=== PATIENT | female | born 1965 | race Caucasian/White ===

== ENCOUNTER → 2018-12-10 | Outpatient (CLI) | payer BC ==
--- NOTE | 2018-12-10 12:21 | XR ---
EXAM TYPE: LUMBAR SPINE X RAY SERIES COMPARISON: NONE HISTORY: Pain TECHNIQUE: 4 views are submitted. FINDINGS: Alignment is anatomic. The pedicles are intact. The transverse processes are intact. There is a lev o scoliotic curvature. There is a grade 1 anterolisthesis L4 on L5. There is facet arthropathy L4-5 a nd L5-S1. Multilevel mild to moderate degenerative disc disease with most marked findings at L4-5 and L5-S1 IMPRESSION: 1. Multilevel degenerative disc disease with grade 1 anterolisthesis L4 on L5. Recommend follow-up MR I.
== END ==
LOC: RADXRYALE 12:05
PROVIDERS: ATTEND Internal Medicine
DX: M43.16 Spondylolisthesis, lumbar region (principal); M51.36 Other intervertebral disc degeneration, lumbar region
CPT/HCPCS: 72110

== ENCOUNTER → 2019-02-06 | Outpatient (CLI) | payer BC ==
--- NOTE | 2019-02-06 12:21 | MM ---
Reason for exam: clinical finding. Baseline mammogram. History: Patient history of other cancer. Physical Findings: Nurse Summary: 0.5cm nodule in the left breast at 10-11 o'clock (nurse melchor). MG 3D Diag Mammo W/Cad QUIN Bilateral CC and MLO view(s) were taken. LM view(s) were taken of the left breast. The breast tissue is heterogeneously dense. This may lower the sensitivity of mammography. There are round, oval, circumscribed bilateral masses greater on the left than right. There is one seen on the right at middle depth in the upper outer quadrant and many on the left. These results were verbally communicated with the patient and result sheet given to the patient on 02/06/19. ASSESSMENT: Incomplete: need additional imaging evaluation, BI-RAD 0 RECOMMENDATION: Ultrasound of both breasts. (right upper outer quadrant, left whole breast)
--- NOTE | 2019-02-06 12:25 | USB ---
Reason for exam: additional evaluation requested from abnormal screening. History: Patient history of other cancer. US Breast Limited BILAT Right limited breast ultrasound including focal area of concern, retroareolar and axilla demonstrates a 0.7 x 0.5 x 0.3cm cystic cluster at 11 o'clock. Left complete breast ultrasound includes all four quadrants, the retroareolar region and axilla. Finding demonstrates a 1.0 x 0.5 x 0.5cm hypoechoic lesion at 8 o'clock likely deep cyst, a 1.4 x 1.7 x 1.3cm solid, hypoechoic lesion at 9 o'clock for which a biopsy is recommended, a 0.6 x 0.9 x 0.9cm solid, hypoechoic lesion at 9 o'clock for which a biopsy is recommended and a 0.5 x 0.8 x 0.5cm solid, hypoechoic lesion at 10 o'clock recommendation based on above biopsies. Posterior left nipple cystic area noted. These results were verbally communicated with the patient and result sheet given to the patient on 02/06/19. ASSESSMENT: Suspicious, BI-RAD 4 RECOMMENDATION: Ultrasound core biopsy of the left breast. (x 2) Called with mammographic findings and has scheduled an appointment for the patient for 02/17/19 at 5:[address] Payne. PRELIMINARY REPORT CALLED AND FAXED TO DR. PAYNE ON 02/06/19.
== END | disposition home or self-care (01) ==
LOC: RADMAMWWP 09:27
PROVIDERS: ATTEND Internal Medicine
DX: N64.59 Other signs and symptoms in breast (principal)
CPT/HCPCS: 77062; 77066

== ENCOUNTER → 2019-02-27 | Outpatient (CLI) | payer BC ==
[2019-02-27 09:38] VITALS: BP 143/78; PULSE 78; RESP 16; TEMP 98.1; BMI 24.7
--- NOTE | 2019-02-27 10:28 | P.GSHP ---
History of Present Illness H&P Date: 02/27/19 Chief Complaint: abnormal mammogram and ultrasound Laura is a 53-year-old white female who recently noticed some nodularity in her left breast. She subsequently underwent a mammogram and ultrasound. On the mammogram the breast tissue was noted to be heterogeneously dense. Therefore round oval circumscribed bilateral masses greater on the left than on the right. There was one seen on the right at middle depth. Bilateral ultrasound was performed. On the ultrasound in the right breast there was noted to be a cystic cluster. In the left breast there is a 1.4 x 1.7 cm solid lesion at 9:00 for which biopsy was recommended, a 0.6 x 0.9 cm solid lesion at 9:00 for which a biopsy was recommended and a 0.5 x 0.8 cm solid lesion at 10:00 biopsy recommended based on above biopsies. The patient with no history of trauma or infection in her breasts. The patient drinks coffee, and ice tea all day. She does not drink pop. She smokes 1/PPD, and is not exposed to second hand smoke. She eats chocolate occasionally. Family history: 1.grandfather paternal: lung 2. Patient with a history of basal cell carcinoma in her nose Clinical history: Menarche:12 , 1 stillborn, age at first live : 22, breast fed: no menopasue: last period in November BCP: 2 years hormones: none Surgical history: 1. 2. Cervical laser ablation 3. Basal cell carcinoma on her nose Medical History: 1. HTN 2. back pain Social History: smoke: 1/PPD, 25 years alcohol: used to drink daily, none now drugs: none - Constitutional Constitutional: Denies chills, Denies fever - EENT Eyes: denies blurred vision, denies pain Ears: bilateral: decreased hearing, deny: tinnitus Ears, nose, mouth and throat: Denies headache, Denies sore throat - Breasts Breasts: bilateral: as per HPI - Cardiovascular Cardiovascular: Reports high blood pressure, Denies chest pain, Denies shortness of breath - Respiratory Comment: smoker - Gastrointestinal Gastrointestinal: Denies abdominal pain, Denies diarrhea, Denies nausea, Denies vomiting - Genitourinary (Female) Genitourinary: Denies dysuria, Denies hematuria - Menstruation Comment: marek-menopausal - Musculoskeletal Comment: back pain Musculoskeletal: Denies myalgias - Integumentary Comment: basal cell cancer on nose - Neurological Neurological: Denies numbness, Denies weakness - Psychiatric Psychiatric: Reports anxiety - Endocrine Endocrine: Denies fatigue, Denies weight change - Hematologic/Lymphatic Comment: motrin as needed for back pain - Allergic/Immunologic Allergic/Immunologic: Reports as per HPI Past Medical History History of Any Multi-Drug Resistant Organisms: None Reported Smoking Status: Current every day smoker Medications and Allergies Home Medications Medication Instructions Recorded Confirmed Type Ibuprofen [Motrin] 800 mg PO TID PRN 02/25/19 02/27/19 History Losartan Potassium [Cozaar] 50 mg PO DAILY 02/25/19 02/27/19 History Venlafaxine HCl [Effexor XR] 112.5 mg PO DAILY 02/25/19 02/27/19 History Allergies Allergy/AdvReac Type Severity Reaction Status Date / Time Sulfa (Sulfonamide Allergy Severe Rash/Hives Verified 02/27/19 09:38 Antibiotics) Surgical - Exam Vital Signs Temp Pulse Resp BP Pulse Ox 98.1 F 78 16 143/78 98 02/27/19 09:32 02/27/19 09:32 02/27/19 09:32 02/27/19 09:32 02/27/19 09:32 BMI 24.7 - General well developed, well nourished, no distress - Eyes normal ocular movement - ENT no hearing loss, no congestion - Neck no masses, trachea midline - Respiratory normal respiratory effort, clear to auscultation - Cardiovascular Rhythm: regular Heart Sounds: normal: S1, S2 - Abdomen Abdomen: soft, non tender, no guarding, no rigid, no rebound - Integumentary normal turgor - Neurologic no disoriented, no combative - Musculoskeletal normal gait, normal posture - Psychiatric oriented to time, oriented to person, oriented to place, speech is normal, memory intact breast exam: right breast: Multi-positional exam no dominant masses or nodules of concern, dense breast, fibrocystic changes, Right axilla: No adenopathy of concern Left breast: Multiple positional exam increased nodularity at 9:00, approximately 1.5 cm in size. Dense breast, fibrocystic changes Left axilla: No adenopathy of concern Results Extensive mammogram and ultrasound results reviewed Assessment and Plan Assessment: Impression: 1. Mammographic abnormality 2. Ultrasound abnormality 3. Personal history of basal cell carcinoma 4. Hypertension 5. Back pain 6. anxiety 7. Nicotine dependence 8. Heavy caffeine intake Discussed the fact that caffeinated beverages and nicotine may increase fibrocystic breast changes. The patient is going to attempt to decrease her caffeine intake and cigarette smoking. Plan: 1. Ultrasound-guided core biopsy of 2 areas of concern in the left breast 2. Medical management of medical conditions 3. Patient is going to decrease caffeine and nicotine intake 4. Medical management of medical problems 5. Follow-up care after ultrasound core biopsies areas in the left breast Cc:
== END ==
LOC: WWCWWP 08:53
PROVIDERS: ATTEND Surgery
DX: Z53.9 Procedure and treatment not carried out, unspecified reason (principal)

== ENCOUNTER → 2019-03-11 | Day surgery (SDC) | payer BC ==
[2019-03-11 11:38] VITALS: RESP 16; TEMP 98.2; BMI 24.7
[2019-03-11 13:16] VITALS: BP 145/84; PULSE 70
--- NOTE | 2019-03-11 13:37 | USB ---
EXAMINATION TYPE: US biopsy breast add'l VAD LT, US biopsy breast VAD LT DATE OF EXAM: 03/11/2019 CLINICAL HISTORY: R92.8 ABNORMAL MAMMOGRAM. TECHNIQUE: Ultrasound guided core biopsy of left breast. COMPARISON: 02/06/2019 FINDINGS: The procedure of ultrasound guided core biopsy was explained to the patient. Benefits, alt ernatives, and risks were discussed. An informed consent was then obtained. A procedural timeout wa s performed. Preprocedural imaging demonstrated at least 2 additional masses, one at the 9:00 position as partiall y visualized measuring at least 1.6 cm on image 21/64 and an additional hypoechoic mass was seen on t he prior ultrasound measuring 0.5 x 0.8 x 0.5 cm at the 10:00 position. Recommendation for these mass es will be based on the above biopsies. Site a (zone C): The patient was placed in supine positioning for imaging and for the procedure. The overlying skin was prepped and draped in usual sterile fashion. 10 cc of 1% lidocaine was used as an esthetic into the skin and subcutaneous tissue up to the approximately 1.2 cm mass at the 9:00 positi on in zone C of the left breast. Under ultrasound guidance, a 12-gauge vacuum assisted biopsy gun device was used to obtain 7 core joel ples. Following this, a ribbon-shaped clip was left in mass. Site b (zone A): The patient was placed in supine positioning for imaging and for the procedure. The overlying skin was prepped and draped in usual sterile fashion. 10 cc of 1% lidocaine was used as a nesthetic into the skin and subcutaneous tissue up to the approximately 1.3 cm mass at the 9:00 posit ion in zone a within the left breast. Under ultrasound guidance, a 12-gauge vacuum assisted biopsy gun device was used to obtain 4 core joel ples. Following this, a coil-shaped biopsy marker was left in mass. The patient tolerated the procedure well without any immediate complication. The patient was kept in the radiology department for short stay after the procedure and then discharged home in stable condi tion. IMPRESSION: Successful, uncomplicated 2 site ultrasound guided core biopsy the left breast with a mor e anterior site suspected to represent a papilloma/intraductal filling defect, full pathology results to follow. There are 2 additional suspicious masses at the 9:00 and 10:00 position for which recomme ndation will be made after biopsy results.
--- NOTE | 2019-03-11 13:47 | MM ---
Reason for exam: additional evaluation requested from abnormal screening. Last mammogram was performed 1 month ago. History: Patient history of other cancer. MG Diagnostic Mammo LT Wo CAD CC and ML view(s) were taken of the left breast. Prior study comparison: February 06, 2019, bilateral MG 3d diag mammo w/cad QUIN. ASSESSMENT: Post procedure mammogram for marker placement RECOMMENDATION: Ultrasound of the left breast in 6 months. PENDING PATHOLOGY RESULTS.
== END ==
LOC: RADUSWWP 11:27
PROVIDERS: ATTEND Internal Medicine
DX: D24.2 Benign neoplasm of left breast (principal); Z88.2 Allergy status to sulfonamides; N60.32 Fibrosclerosis of left breast; N60.02 Solitary cyst of left breast
CPT/HCPCS: 88305; 77065; 19083; 19084; A4648; J2001

== ENCOUNTER → 2019-03-21 | Outpatient (CLI) | payer BC ==
[2019-03-21 09:53] VITALS: BP 124/78; PULSE 88; RESP 16; TEMP 98.2; BMI 24.3
--- NOTE | 2019-03-21 10:20 | P.PN ---
Subjective Progress Note Date: 03/21/19 Laura is a 53-year-old white female who recently noticed some nodularity in her left breast. She subsequently underwent a mammogram and ultrasound. On the mammogram the breast tissue was noted to be heterogeneously dense. Therefore round oval circumscribed bilateral masses greater on the left than on the right. There was one seen on the right at middle depth. Bilateral ultrasound was performed. On the ultrasound in the right breast there was noted to be a cystic cluster. In the left breast there is a 1.4 x 1.7 cm solid lesion at 9:00 for which biopsy was recommended, a 0.6 x 0.9 cm solid lesion at 9:00 for which a biopsy was recommended and a 0.5 x 0.8 cm solid lesion at 10:00 biopsy rec ommended based on above biopsies. The patient with no history of trauma or infection in her breasts. The patient drinks coffee, and ice tea all day. She does not drink pop. She smokes 1/PPD, and is not exposed to second hand smoke. She eats chocolate occasionally. The patient underwent ultrasound-guided core biopsy of 2 lesions at 9:00 in the left breast and [id number]. This revealed intraductal papilloma. Secondary to the findings on ultrasound it was recommended. An additional lesion at 10:00 be sampled as well. The patient does have some complaints of ecchymosis at the site of the biopsy. She has persistent for less at the area of the site. This is not a hematoma but was there prior to the biopsy. Family history: 1.grandfather paternal: lung 2. Patient with a history of basal cell carcinoma in her nose Clinical history: Menarche:12 , 1 stillborn, age at first live : 22, breast fed: no menopasue: last period in November BCP: 2 years hormones: none Surgical history: 1. 2. Cervical laser ablation 3. Basal cell carcinoma on her nose Medical History: 1. HTN 2. back pain Social History: smoke: 1/PPD, 25 years alcohol: used to drink daily, none now drugs: none - Constitutional Constitutional: Denies chills, Denies fever - EENT Eyes: denies blurred vision, denies pain Ears: bilateral: decreased hearing, deny: tinnitus Ears, nose, mouth and throat: Denies headache, Denies sore throat - Breasts Breasts: bilateral: as per HPI - Cardiovascular Cardiovascular: Reports high blood pressure, Denies chest pain, Denies shortness of breath - Respiratory Comment: smoker - Gastrointestinal Gastrointestinal: Denies abdominal pain, Denies diarrhea, Denies nausea, Denies vomiting - Genitourinary (Female) Genitourinary: Denies dysuria, Denies hematuria - Menstruation Comment: marek-menopausal - Musculoskeletal Comment: back pain Musculoskeletal: Denies myalgias - Integumentary Comment: basal cell cancer on nose - Neurological Neurological: Denies numbness, Denies weakness - Psychiatric Psychiatric: Reports anxiety - Endocrine Endocrine: Denies fatigue, Denies weight change - Hematologic/Lymphatic Comment: motrin as needed for back pain - Allergic/Immunologic Allergic/Immunologic: Reports as per HPI Objective - Vital Signs Vital signs: Vital Signs Temp 98.2 F 03/21/19 09:50 Pulse 88 03/21/19 09:50 Resp 16 03/21/19 09:50 BP 124/78 03/21/19 09:50 Pulse Ox 98 03/21/19 09:50 Intake & Output 03/20/19 03/21/19 03/21/19 18:59 06:59 18:59 Weight 60.328 kg - Exam BMI 24.3 - Constitutional General appearance: Present: average body habitus - EENT Eyes: Present: EOMI ENT: Present: hearing grossly normal - Neck Neck: Present: normal ROM - Respiratory Respiratory: bilateral: CTA - Cardiovascular Rhythm: regular Heart sounds: normal: S1, S2 - Integumentary Integumentary Comment(s): echymosis left breast at biopsy site Persistent fullness upper inner quadrant at biopsy site not associated with hematoma Integumentary: Present: normal turgor - Musculoskeletal Musculoskeletal: Present: gait normal - Psychiatric Psychiatric: Present: A&O x's 3, appropriate affect, intact judgment & insight Assessment and Plan Assessment: Impression: 1. Ultrasound-guided core biopsy of 2 sites in the left breast both consistent with intraductal papilloma 2. Third site and ultrasound at 10:00 for which ultrasound-guided core biopsy is recommended 3. Personal history of basal cell carcinoma 4. Hypertension 5. Back pain 6. Anxiety 7. Nicotine dependence 8. Heavy caffeine intake Plan: 1. Ultrasound-guided core biopsy of 10:00 area in the left breast 2. Medical management of medical conditions 3. Localization and excisional biopsy of 2 areas at 9:00 and depending on results of 10:00 ultrasound biopsy this may be included in the excision as well Risk and benefits of procedure discussed with patient and her they understand and this is being scheduled for the near future Cc: Dr. Payne
== END ==
LOC: WWCWWP 09:43
PROVIDERS: ATTEND Surgery
DX: Z53.9 Procedure and treatment not carried out, unspecified reason (principal)

== ENCOUNTER → 2019-04-04 | Day surgery (SDC) | payer BC ==
[2019-04-04 10:42] VITALS: RESP 16; BMI 24.3
[2019-04-04 12:40] VITALS: BP 127/82; PULSE 68; TEMP 98.1
--- NOTE | 2019-04-04 13:33 | USB ---
EXAMINATION TYPE: US biopsy breast add'l VAD LT, US biopsy breast VAD LT, MG diagnostic mammo LT wo CAD DATE OF EXAM: 04/04/2019 CLINICAL HISTORY: R92.8 ABNORMAL MAMMOGRAM. TECHNIQUE: Ultrasound guided core biopsy of left breast. COMPARISON: Ultrasound of the left breast dated 03/11/2019 and ultrasound-guided left breast biopsy dated 04/04/2019. FINDINGS: The procedure of ultrasound guided core biopsy was explained to the patient. Benefits, alternatives, and risks were discussed. An informed consent was then obtained. Preprocedural timeout was performed. Site A: The patient was placed in supine positioning for imaging and for the procedure. The overlying skin was prepped and draped in usual sterile fashion. 10 cc of 1% lidocaine was used as anesthetic into the skin and subcutaneous tissue up to the 0.5 x 0.8 x 0.5 cm mass at the 9:00 position in the left breast, previously denoted 10:00. Under ultrasound guidance, a 12-gauge vacuum assisted biopsy gun device was used to obtain 4 core samples. Following this, a wing shaped biopsy marker was left in mass. Site B: The patient was placed in supine positioning for imaging and for the procedure. The overlying skin was prepped and draped in usual sterile fashion. 10 cc of 1% lidocaine was used as anesthetic into the skin and subcutaneous tissue up to the lobulated mass at the 10:00 position measuring 1.0 x 0.5 cm within the left breast. Under ultrasound guidance, a 12-gauge vacuum assisted biopsy gun device was used to obtain 3 core samples. Following this, a [employer]rom[employer] biopsy marker was left in mass. A biopsy marker was attempted to be placed within an additional 4 mm mass at the 10:00 position adjacent to the biopsy site B, however after instillation of the biopsy marker device without deforming the biopsy marker this cyst collapsed. No biopsy marker was therefore placed. The patient tolerated the procedure well without any immediate complication. The patient was kept in the radiology department for short stay after the procedure and then discharged home in stable condition. Procedure mammogram demonstrates appropriate biopsy marker placement. IMPRESSION: Successful, uncomplicated ultrasound guided core biopsy of 2 sites within the left breast at the 9:00 and 10:00 positions, full pathology results to follow. Of note CC post biopsy image is labeled with the prior and pending pathology, which can be referenced for excision. Pathology Results: Malignant A. LEFT BREAST, 9:00, CORE BIOPSY: Malignant neoplasm with squamous differentiation, favor metaplastic mammary carcinoma. See surgical pathology cancer case summary and comment. B. LEFT BREAST, 10:00, ULTRASOUND GUIDED CORE BIOPSY: Intraductal papilloma. Recommendation Surgical consult of the left breast. Excision of multiple papillomas and squamous cell cancer. [facility]
== END ==
LOC: RADUSWWP 10:23
PROVIDERS: ATTEND Surgery
DX: C50.812 Malignant neoplasm of overlapping sites of left female breast (principal); D24.2 Benign neoplasm of left breast; Z88.2 Allergy status to sulfonamides
CPT/HCPCS: 88305; 88342; 88341; 77065; 19083; 19084; A4648; J2001

== ENCOUNTER → 2019-04-10 | Outpatient (CLI) | payer BC ==
[2019-04-10 11:11] VITALS: BP 151/87; PULSE 92; RESP 16; TEMP 98.2; BMI 24.3
--- NOTE | 2019-04-10 12:08 | P.PN ---
Subjective Progress Note Date: 04/10/19 Laura is a 53-year-old white female who recently noticed some nodularity in her left breast. She subsequently underwent a mammogram and ultrasound. On the mammogram the breast tissue was noted to be heterogeneously dense. There were round oval circumscribed bilateral masses greater on the left than on the right. There was one seen on the right at middle depth. Bilateral ultrasound was performed. On the ultrasound in the right breast there was noted to be a cystic cluster. In the left breast there is a 1.4 x 1.7 cm solid lesion at 9:00 for which biopsy was recommended, a 0.6 x 0.9 cm solid lesion at 9:00 for which a biopsy was recommended and a 0.5 x 0.8 cm solid lesion at 10:00 biopsy rec ommended based on above biopsies. The patient's initial biopsies revealed intraductal papilloma and she went for further biopsies and one at the left breast at 9:00 revealed a metaplastic mammary carcinoma. The patient has no complaints related to her recent biopsies. The patient with no history of trauma or infection in her breasts. The patient drinks coffee, and ice tea all day. She does not drink pop. She smokes 1/PPD, and is not exposed to second hand smoke. She eats chocolate occasionally. Family history: 1.grandfather paternal: lung 2. Patient with a history of basal cell carcinoma in her nose Clinical history: Menarche:12 , 1 stillborn, age at first live : 22, breast fed: no menopasue: last period in November BCP: 2 years hormones: none Surgical history: 1. 2. Cervical laser ablation 3. Basal cell carcinoma on her nose Medical History: 1. HTN 2. back pain Social History: smoke: 1/PPD, 25 years alcohol: used to drink daily, none now drugs: none - Constitutional Constitutional: Denies chills, Denies fever - EENT Eyes: denies blurred vision, denies pain Ears: bilateral: decreased hearing, deny: tinnitus Ears, nose, mouth and throat: Denies headache, Denies sore throat - Breasts Breasts: bilateral: as per HPI - Cardiovascular Cardiovascular: Reports high blood pressure, Denies chest pain, Denies shortness of breath - Respiratory Comment: smoker - Gastrointestinal Gastrointestinal: Denies abdominal pain, Denies diarrhea, Denies nausea, Denies vomiting - Genitourinary (Female) Genitourinary: Denies dysuria, Denies hematuria - Menstruation Comment: marek-menopausal - Musculoskeletal Comment: back pain Musculoskeletal: Denies myalgias - Integumentary Comment: basal cell cancer on nose - Neurological Neurological: Denies numbness, Denies weakness - Psychiatric Psychiatric: Reports anxiety - Endocrine Endocrine: Denies fatigue, Denies weight change - Hematologic/Lymphatic Comment: motrin as needed for back pain - Allergic/Immunologic Allergic/Immunologic: Reports as per HPI Past Medical History History of Any Multi-Drug Resistant Organisms: None Reported Smoking Status: Current every day smoker Objective - Vital Signs Vital signs: Vital Signs Temp 98.2 F 04/10/19 11:09 Pulse 92 04/10/19 11:09 Resp 16 04/10/19 11:09 BP 151/87 04/10/19 11:09 Pulse Ox 97 04/10/19 11:09 Intake & Output 04/09/19 04/10/19 04/10/19 18:59 06:59 18:59 Weight 60.328 kg - Constitutional General appearance: Present: average body habitus - EENT Eyes: Present: EOMI ENT: Present: hearing grossly normal - Neck Neck: Present: normal ROM - Respiratory Respiratory: bilateral: CTA - Cardiovascular Rhythm: regular Heart sounds: normal: S1, S2 - Integumentary Integumentary: Present: normal turgor - Musculoskeletal Musculoskeletal: Present: gait normal - Psychiatric Psychiatric: Present: A&O x's 3, appropriate affect, intact judgment & insight - Additional findings Additional findings: Left breast: Biopsy site mild ecchymosis with small hematoma No evidence of any infection Assessment and Plan Assessment: Impression: 1. Metaplastic mammary carcinoma left breast 2. Multiple intraductal papillomas multifocal and the breast 3. Family history of cancer 4. Personal history of basal cell carcinoma 5. Hypertension 6. Nicotine dependence Metaplastic carcinoma diagnosis was discussed with the patient and her . Options of lumpectomy versus mastectomy with sentinel node biopsy and possible axillary node dissection were discussed with the patient. The patient has multifocal disease include not only the site of metaplastic carcinoma but also intraductal papillomas. After discussion with the patient and her she has opted for a mastectomy with immediate reconstruction. She will also have a sentinel node biopsy possible axillary node dissection. Plan: 1. Mastectomy with sentinel node biopsy, possible axillary node dissection immediate reconstruction 2. Present case at tumor board 3. Appointment with plastic surgery 4. Bilateral breast MRI Cc: Dr. Payne
== END | disposition home or self-care (01) ==
LOC: WWCWWP 11:01
PROVIDERS: ATTEND Surgery
DX: Z53.9 Procedure and treatment not carried out, unspecified reason (principal)

== ENCOUNTER → 2019-04-10 | Outpatient (CLI) | payer BC ==
--- NOTE | 2019-04-10 13:31 | XR ---
EXAMINATION TYPE: XR chest 2V DATE OF EXAM: 04/10/2019 COMPARISON: NONE HISTORY: Newly diagnosed breast cancer. Presurgical study. TECHNIQUE: Frontal and lateral views of the chest are obtained. FINDINGS: There is no focal air space opacity, pleural effusion, or pneumothorax seen. The cardiac silhouette size is within normal limits. Underlying dextroconvex scoliosis centered in the lower thor acic spine is present.. IMPRESSION: No acute cardiopulmonary process.
== END | disposition home or self-care (01) ==
LOC: RADXRMAIN 12:46
PROVIDERS: ATTEND Surgery
DX: R07.9 Chest pain, unspecified (principal)
CPT/HCPCS: 71046

== ENCOUNTER 2019-05-06 08:52 | Observation (INO) | payer BC ==
[2019-05-02 09:04] VITALS: BMI 24.3
[~2019-05-06 08:52] MED LIST: DEXAMETHASONE SOD PHOSPHATE 10 MG/ML 1 ML VIAL IV ONE; HEPARIN SODIUM,PORCINE 5,000 UNIT/ML 1 ML VIAL SQ ONE; ONDANSETRON 4 MG/2 ML VIAL IVP ONE; Pre Op ABX Message 1 EACH MISC MISCELLANE ONE
[2019-05-06] MEDS: LACTATED RINGERS 1,000 ML IV SCH ×3 (09:36→19:49)
[2019-05-06] MEDS ORDERED: LIDOCAINE 1% 20 ML VIAL (10MG/ML) FOR IV START INTRADERMA ONE (09:36)
[2019-05-06] MEDS ORDERED: ALPRAZolam 0.5 MG TAB PO ONE (09:39)
[2019-05-06] MEDS ORDERED: ONDANSETRON 4 MG/2 ML VIAL IVP ONE (10:13)
[2019-05-06] MEDS ORDERED: DEXAMETHASONE SOD PHOSPHATE 4 MG/ML 1 ML VIAL IV ONE (10:14)
--- NOTE | 2019-05-06 10:38 | NM ---
EXAMINATION TYPE: NM sentinel node injection DATE OF EXAM: 05/06/2019 COMPARISON: Breast exams dating back to 03/11/2019 HISTORY: Left breast cancer for which mastectomy will be performed. Thurston node biopsy in the left was requested. TECHNIQUE AND FINDINGS: The procedure of sentinel lymph node injection was explained to the patient. The benefits, alternatives, and risks were discussed. An informed consent was then obtained. Prepr ocedural timeout was performed. Overlying skin is cleaned with sterile alcohol. Following this, 520 uCi Tc99m Tilmanocept was inject ed in the upper outer aspect of the left nipple intradermally. The patient tolerated the procedure well without any immediate complication. The patient was kept in the radiology department for short stay after the procedure and then taken to surgery for surgical p rocedure what is presumed intraoperative gamma probe will be used for sentinel lymph node detection. IMPRESSION: Left breast radiotracer injection for sentinel node localization as above.
[2019-05-06] MEDS ORDERED: HEPARIN SODIUM,PORCINE 5,000 UNIT/ML 1 ML VIAL SQ ONE (11:10)
--- NOTE | 2019-05-06 11:12 | P.NAPBC ---
NAPBC Queries - NAPBC Queries Was patient's case review presented at [facility] tumor board? If no, comment.: Yes Was patient's pathology reviewed at [facility]? If no, comment.: Yes Was breast conservation surgery offered? If no, comment.: No (Not recommended secondary to multifocal disease) Was sentinel node biopsy offered? If no, comment.: Yes Was diagnosis confirmed by percutaneous core biopsy? If no, comment.: Yes Is patient mastectomy patient?: Yes Was a preop referral to reconstructive surgeon offered?: Yes Clinical Stage: STAGE 1A
[2019-05-06] MEDS ORDERED: fentaNYL (PF) 50 MCG/ML 2 ML AMP ONE (11:40)
[2019-05-06] MEDS ORDERED: MIDAZOLAM 2 MG/2 ML VIAL ONE (11:40)
[2019-05-06] MEDS ORDERED: PHENYLEPHRINE-0.9% NACL SYG 1 MG/10 ML SYRINGE ONE (11:40)
[2019-05-06] MEDS ORDERED: SUCCINYLCHOLINE CHLORIDE 100 MG/5 ML SYR IV ONE (11:40)
[2019-05-06] MEDS ORDERED: ePHEDrine SULFATE/0.9% NACL/PF 50 MG/5 ML SYRINGE IV ONE (11:40)
[2019-05-06] MEDS ORDERED: LIDOCAINE 1% INJ 10MG/ML (20 ML MDV) ONE (11:40)
[2019-05-06] MEDS ORDERED: PROPOFOL 10 MG/ML 20 ML VIAL IV ONE (11:40)
[2019-05-06] MEDS ORDERED: HYDROmorphone (PF) 1 MG/ML ONE (11:40)
[2019-05-06] MEDS ORDERED: SODIUM CHLORIDE 0.9% 100 ML with ceFAZolin 2,000 MG IV ONE ×2 (11:55)
[2019-05-06] MEDS ORDERED: LACTATED RINGERS 1,000 ML IV ONE ×2 (13:08)
[2019-05-06] MEDS ORDERED: ONDANSETRON 4 MG/2 ML VIAL IVP PRN (14:24)
[2019-05-06] MEDS ORDERED: NALOXONE 0.4 MG/ML 1 ML VIAL IV PRN (14:24)
--- NOTE | 2019-05-06 14:24 | P.OP ---
Date of Procedure: 05/06/19 Preoperative Diagnosis: Left breast cancer with multifocal intraductal papillomas Postoperative Diagnosis: Same Procedure(s) Performed: Left breast sentinel node biopsy, left total skin sparing mastectomy Anesthesia: SCOUT Surgeon: Trini Benedict Estimated Blood Loss (ml): 100 IV fluids (ml): 1,300 Pathology: other (Rew node, left breast) Condition: stable Disposition: floor Indications for Procedure: Left breast multifocal intraductal papilloma, invasive metaplastic cancer Operative Findings: Dense breast tissue Description of Procedure: Following injection of lymphatic kind in the periareolar region the patient was taken to the operating room. The patient was also seen prior to surgery by plastic surgery and the appropriate skin markings were created. The patient was taken to the operating room and following induction of anesthesia both breasts and the left axilla were prepped and draped in a sterile fashion. Using the neoprobe the area of greatest radioactivity was identified. An incision was made in the axilla and carried through the skin and subcutaneous tissue into the axillary contents. The radioactive lymph node was identified. This was grasped using an Allis clamp and using the Harmonic scalpel the area was excised. A 10 second ex vivo count was 54,000. The 10 second background axillary count was approximately 100. A second radioactive lymph node was removed with the specimen and its 10 second count was 33,300. This lymph node was not clinically suspicious and was not sent for frozen section evaluation. The lymph node was sent for frozen section evaluation and was negative for cancer on frozen section. A small amount of additional axillary tissue then removed with removal of the node and this was sent for permanent evaluation. Following this the area of the breast was approached. A periareolar incision was made. This was carried through the skin and subcutaneous tissue down to the plane between the breast tissue and the skin. The breast tissue was extremely dense and the breast tissue extended very close to the skin. Careful dissection using the electrocautery device was performed to remove the breast tissue. The skin envelope was maintained using palpation to assure that the fibrotic breast tissue was removed. Dissection was carried down to the pectoralis major muscle. At the medial portion of the pectoralis major muscle perforating vessel was identified which was suture ligated. The tissue was then removed from medial to lateral off the pectoralis muscle using the electrocautery device. The wound was well irrigated. No evidence of bleeding was identified. At this time the breast was marked with a superior suture which was short and a long suture which was lateral. The specimen was sent to pathology. Dr. Latham from plastic surgery than came in to place the tissue cardiology nurse.
[2019-05-06] MEDS: HYDROmorphone 0.5 MG/0.5 ML SYRINGE IVP PRN ×4 (15:03→22:52)
[2019-05-06] MEDS ORDERED: KETOROLAC 30 MG/ML 1 ML VIAL IVP ONE (15:04)
[2019-05-06] MEDS: HEPARIN SODIUM,PORCINE 5,000 UNIT/ML 1 ML VIAL SQ SCH (17:59)
[2019-05-06] MEDS: D5-0.45% NACL WITH KCL 20MEQ/L 1,000 ML IV SCH (19:09)
[2019-05-06] MEDS: FAMOTIDINE 20 MG TAB PO SCH (21:17)
[2019-05-07] MEDS: D5-0.45% NACL WITH KCL 20MEQ/L 1,000 ML IV SCH ×2 (00:14→20:03)
[2019-05-07] MEDS: HEPARIN SODIUM,PORCINE 5,000 UNIT/ML 1 ML VIAL SQ SCH ×3 (01:06→17:04)
[2019-05-07] MEDS: HYDROmorphone 0.5 MG/0.5 ML SYRINGE IVP PRN (04:02)
[2019-05-07] MEDS: HYDROcodone/APAP 5-325MG 1 EACH TAB PO PRN ×5 (05:00→21:05)
--- NOTE | 2019-05-07 05:54 | OP ---
OPERATIVE REPORT DATE OF SURGERY: May 06, 2019. SURGEON: Pradeep Novak MD. PREOPERATIVE DIAGNOSES: 1. Acquired loss left breast. 2. Left breast cancer. POSTOPERATIVE DIAGNOSES: 1. Acquired loss left breast. 2. Left breast cancer. OPERATIVE PROCEDURES: 1. Immediate reconstruction left breast following mastectomy with insertion of tissue smoke control supervisor subsequent outpatient expansion. 2. Implantation of reconstructive graft for left breast reconstruction. OPERATIVE INDICATIONS: Patient is a 53-year-old female with invasive cancer of the left breast. She Is to undergo a left mastectomy. She was referred to my care for breast reconstruction, has elected upon a tissue smoke control supervisor style reconstruction. She understands the staged nature of this type of surgery as well as potential risks and complications related to surgery. Preoperatively to lower her risk of problems and complications, the patient has stopped smoking. She understands there is increased risk of wound healing problems, other complications related to tobacco use. She has requested I perform today's surgery. OPERATIVE PROCEDURE SUMMARY: The patient was seen in the presurgical area, markings made, procedure reviewed. All questions answered. She was transported to the operating room where she was placed in supine position. Following induction of general tracheal anesthesia, the patient was prepped and draped in the usual fashion. Dr. Benedict and her team then proceeded with the left sentinel lymph node biopsy and left simple mastectomy. The sentinel lymph node was negative for cancer. Once the mastectomy was completed, I entered the procedure. All sponge and needle counts of prior procedure were correct. The patient was under general tracheal anesthesia in supine position. The mastectomy wound was open with no active bleeding. The wound was irrigated. The reconstructive procedures were now initiated. The pectorals major muscle was identified where it joined the chest wall on the lateral aspect. Loose areolar connective tissue divided with cautery here allowing entry into the potential plane between the pectorals major minor muscles which were bluntly developed. Medial attachment fibers of the pectorals major muscle to the rib structures released with cautery and all inferior attachments. Hemostasis maintained with cautery. Additional muscle tissue was required for complete coverage of the reconstructive smoke control supervisor inferior medially rectus abdominis muscle and fascia, inferolaterally external abdominal oblique muscle and fascia and laterally serrated anterior muscle and fascia were all elevated through this technique. Once a sufficient size submuscular pocket was created, dissection stopped. Irrigation was performed. Hemostasis maintained with cautery. Excellent hemostasis was obtained. The cavity was measured. Gloves were changed. The tissue smoke control supervisor was then opened on the field. The tissue smoke control supervisor was from the [employer] High-Profile Model, reference number [id number], Serial #[id number]. The device volume was 475 mL. The device was only handled by the surgeon. All air was extracted 50 mL of 0.9 normal saline instilled. It was inserted into the reconstructive cavity. Orientation was assured under direct vision. Once optimally positioned, SurgiMend was then placed over the smoke control supervisor, but deep to the muscle tissue the span of gap for the muscle could not be closed without significant tension. This allowed optimization for the space for the reconstructive purpose as well and buttressing of the patient's muscle. The SurgiMend was inset to the muscle flap tissue using interrupted short running 3-0 Vicryl. Additional 100 mL of 0.9 normal saline instilled into the smoke control supervisor to optimize the tension and fill the space making the final volume 150 mL. Irrigation was performed. Hemostasis excellent. A 15 round drain was inserted in the surgical field and brought out a separate stab incision left anterior lateral chest wall and suture in placed with 2-0 Prolene. The drain was kept at full length. The circumareolar mastectomy incision was now closed in a pursestring fashion at the deep dermal layer followed by finer approximation of the more superficial dermis with inverted interrupted 4-0 Monocryl then completing fine approximation of the skin with shante. The surgical quezada were then cleansed with saline, dried and postoperative bandages placed using Kerlix squares and 3 mm Medipore tape. The drain was connected to close bulb suction and patent. The patient was then awakened from her anesthetic, extubated, and transferred to the recovery room in good condition stable vital signs. The estimated blood loss was 50 mL. There were no complications. MMODL / IJN: [id number] /
[2019-05-07] MEDS: VENLAFAXINE HCL ER 37.5 MG CAP PO SCH (08:10)
[2019-05-07] MEDS: FAMOTIDINE 20 MG TAB PO SCH ×2 (08:10→21:05)
[2019-05-07] MEDS: LOSARTAN 50 MG TAB PO SCH (08:11)
[2019-05-07 09:12] LABS: Basophils % (A) 0 %; Eosinophils # (A) 0.1 k/uL (0-0.7); Eosinophils % (A) 1 %; HCT 32.6 % (34.0-46.0); Lymphocytes # (A) 1.9 k/uL (1.0-4.8); Lymphocytes % (A) 20 %; MCH 31.2 pg (25.0-35.0); MCHC 33.6 g/dL (31.0-37.0); MCV 92.7 fL (80.0-100.0); Mean Platelet Volume 7.8; Monocytes # (A) 0.7 k/uL (0-1.0); Monocytes % (A) 8 %; Neutrophils # (A) 6.5 k/uL (1.3-7.7); Neutrophils % (A) 70 %; Platelet Count 230 k/uL (150-450); RBC 3.52 m/uL (3.80-5.40); RDW 13.5 % (11.5-15.5); WBC 9.4 k/uL (3.8-10.6)
--- NOTE | 2019-05-07 13:16 | P.CONS ---
History of Present Illness - History of Present Illness This is a pleasant 53 years old female with past medical history of hypertens ion, osteoarthritis, left breast cancer diagnosis in March 2019, degenerative disc disease on chronic back pain. She presents for elective reconstruction of her left breast following mastectomy for her acquired close of her left breast related to her left breast cancers by her surgeon. With implantation of a graft in her left breast. Today postop day #1. Vitas looks stable. Labs show a normal WBC of 9.4K, hemoglobin 11, platelets within normal limits. She is currently on Pepcid, and heparin for DVT prophylaxis, pain management as per surgeons primary team, also she is on Cozaar and Zofran as needed. Review of Systems CONSTITUTIONAL: No fever, no malaise, no fatigue. HEENT: No recent visual problems or hearing problems. Denied any sore throat. CARDIOVASCULAR: No orthopnea, PND, no palpitations, no syncope. PULMONARY: No shortness of breath, no cough, no hemoptysis. GASTROINTESTINAL: No diarrhea, no nausea, no vomiting, no abdominal pain. Normoactive bowel sounds. NEUROLOGICAL: No headaches, no weakness, no numbness. HEMATOLOGICAL: Denies any bleeding or petechiae. GENITOURINARY: Denies any burning micturition, frequency, or urgency. MUSCULOSKELETAL/RHEUMATOLOGICAL: Denies any joint pain, swelling, or any muscle pain. ENDOCRINE: Denies any polyuria or polydipsia. Past Medical History Past Medical History: Cancer, Hypertension, Osteoarthritis (OA) Additional Past Medical History / Comment(s): left breast CA-dx March 2019. lower left back Degenerative disc disease/pain. basal cell skin cancer on right nostril History of Any Multi-Drug Resistant Organisms: None Reported Past Surgical History: Section Additional Past Surgical History / Comment(s): x 1 (1994). cervical laser ablation in 2005 (cervical dysplasia). left breast excisional biopsyx2. Left mastectomy and sentinal node biopsy 05/06/2019 Past Anesthesia/Blood Transfusion Reactions: No Reported Reaction Additional Past Anesthesia/Blood Transfusion Reaction / Comm: No blood transfusion to date Smoking Status: Current every day smoker - Past Family History Father Additional Family Medical History / Comment(s): patients paternal grandfather from lung cancer at age 80. Mother Family Medical History: Hyperlipidemia, Hypertension Brother(s) Family Medical History: No Reported History Daughter(s) Family Medical History: No Reported History Son(s) Family Medical History: No Reported History Additional Family Medical History / Comment(s): DDD Medications and Allergies Home Medications Medication Instructions Recorded Confirmed Type Ibuprofen [Motrin] 800 mg PO TID PRN 02/25/19 05/07/19 History Losartan Potassium [Cozaar] 50 mg PO QAM 02/25/19 05/07/19 History Venlafaxine HCl [Effexor XR] 112.5 mg PO QAM 02/25/19 05/07/19 History Acetaminophen Tab [Tylenol Tab] 1,000 mg PO Q6HR PRN 05/02/19 05/07/19 History Allergies Allergy/AdvReac Type Severity Reaction Status Date / Time Sulfa (Sulfonamide Allergy Severe Rash/Hives Verified 05/07/19 07:31 Antibiotics) Physical Exam Vitals: Vital Signs Temp Pulse Pulse Pulse Resp BP Pulse Ox 05/07/19 11:42 98.4 F 81 18 128/63 96 05/07/19 08:00 98.2 F 70 18 107/71 95 05/07/19 03:59 98.1 F 74 18 118/80 96 05/07/19 01:09 98.4 F 74 16 118/73 97 05/06/19 22:50 82 18 110/66 98 05/06/19 21:20 84 16 102/67 97 05/06/19 20:20 90 18 134/78 96 05/06/19 19:21 98.4 F 96 16 124/72 97 05/06/19 18:20 93 16 129/80 100 05/06/19 17:50 94 16 145/82 100 05/06/19 17:23 98 16 129/78 100 05/06/19 17:10 91 16 143/79 100 05/06/19 16:55 89 16 127/79 100 05/06/19 16:45 90 18 114/75 99 05/06/19 16:30 97.9 F 87 16 94/60 97 05/06/19 15:46 91 16 124/59 98 05/06/19 15:33 90 16 131/63 100 05/06/19 15:17 93 16 124/62 99 05/06/19 15:02 90 16 124/62 05/06/19 14:50 97 F L 92 16 122/61 97 Intake and Output 05/06/19 05/07/19 05/07/19 22:59 06:59 14:59 Intake Total 250 200 200 Output Total 523 1055 30 Balance -273 -855 170 Intake: IV 100 Intake, IV Titration 50 Amount ceFAZolin 1,000 mg In 50 Sodium Chloride 0.9% 50 ml @ 100 mls/hr IVPB Q6HR [facility] Rx#:[id number] Oral 100 200 200 Output: Drainage 23 30 30 Left Breast 23 30 30 Urine 500 1025 Other: Voiding Method Toilet Toilet Toilet # Voids 1 1 1 GENERAL: The patient is alert and oriented x3, not in any acute distress. Well developed, well nourished. HEENT: Pupils are round and equally reacting to light. EOMI. No scleral icterus. No conjunctival pallor. Normocephalic, atraumatic. No pharyngeal erythema. No thyromegaly. CARDIOVASCULAR: S1 and S2 present. No murmurs, rubs, or gallops. PULMONARY: Chest is clear to auscultation, no wheezing or crackles. -Breast exam: Left breast wound, dressing is in place. Rest of exam is deferred to the surgery primary team ABDOMEN: Soft, nontender, nondistended, normoactive bowel sounds. No palpable organomegaly. MUSCULOSKELETAL: No joint swelling or deformity. EXTREMITIES: No cyanosis, clubbing, or pedal edema. NEUROLOGICAL: Gross neurological examination did not reveal any focal deficits. SKIN: No rashes. Results CBC & Chem 7: 05/07/19 08:09 Labs: Abnormal Lab Results - Last 24 Hours (Table) 05/07/19 Range/Units 08:09 RBC 3.52 L (3.80-5.40) m/uL Hgb 11.0 L (11.4-16.0) gm/dL Hct 32.6 L (34.0-46.0) % Assessment and Plan Assessment: History of left breast cancer, status post mastectomy. She is status post elective reconstruction of her left breast With implantation of a graft in her left breast Essential hypertension Osteoarthritis History of degenerative disc disease and chronic back pain Plan: This is a pleasant 53 years old female who presents for elective left breast reconstruction surgery. Labs and medication were reviewed.. Continue same treatment. Continue with symptomatic treatment. Resume home medication. Monitor lytes and vitals. DVT and GI prophylaxis. Further recommendations of the clinical course of the patient DVT prophylaxis: Subcutaneous heparin GI Prophylaxis: Pepcid Prognosis is guarded
--- NOTE | 2019-05-07 13:23 | P.PN ---
Subjective Progress Note Date: 05/07/19 Principal diagnosis: Left breast mastectomy with subpectoral implant placement Laura is a 53-year-old white female postop day #1 left skin sparing mastectomy with subpectoral implant placement. She also had sentinel node biopsy. Postoperatively she is doing well but complains of discomfort at the mastectomy site. She is using IV pain medication at this time. Objective - Vital Signs Vital signs: Vital Signs Temp 98.4 F 05/07/19 11:42 Pulse 81 05/07/19 11:42 Resp 18 05/07/19 11:42 BP 128/63 05/07/19 11:42 Pulse Ox 96 05/07/19 11:42 Intake & Output 05/06/19 05/07/19 05/07/19 18:59 06:59 18:59 Intake Total 1700 350 200 Output Total 573 1555 30 Balance 1127 -1205 170 Intake: IV 1700 Intake, IV Titration 50 Amount ceFAZolin 1,000 mg In 50 Sodium Chloride 0.9% 50 ml @ 100 mls/hr IVPB Q6HR [facility] Rx#:[id number] Oral 300 200 Output: Drainage 23 30 30 Left Breast 23 30 30 Urine 350 1525 Estimated Blood Loss 200 Other: Voiding Method Toilet Toilet # Voids 1 1 - Constitutional General appearance: Present: average body habitus - EENT Eyes: Present: EOMI ENT: Present: hearing grossly normal - Respiratory Respiratory: bilateral: CTA - Cardiovascular Rhythm: regular Heart sounds: normal: S1, S2 - Integumentary Integumentary Comment(s): Incision in the axilla clean and dry Incision and the breast clean and dry No evidence of hematoma or infection PORTER drain 30 mL serous - Labs CBC & Chem 7: 05/07/19 08:09 Labs: Abnormal Lab Results - Last 24 Hours (Table) 05/07/19 Range/Units 08:09 RBC 3.52 L (3.80-5.40) m/uL Hgb 11.0 L (11.4-16.0) gm/dL Hct 32.6 L (34.0-46.0) % Assessment and Plan Assessment: Impression 1. Patient postop day #1 left breast skin sparing mastectomy with sentinel node biopsy and subpectoral implant placement 2. Patient with some postoperative persistent discomfort Plan: 1. Continue present therapy 2. Change IV heparin lock 3. Discharge home tomorrow will keep patient 1 more day for pain control
[2019-05-08] MEDS: HYDROcodone/APAP 5-325MG 1 EACH TAB PO PRN ×3 (00:37→10:31)
[2019-05-08] MEDS: HEPARIN SODIUM,PORCINE 5,000 UNIT/ML 1 ML VIAL SQ SCH ×2 (00:38→08:18)
--- NOTE | 2019-05-08 08:08 | P.PN ---
Subjective Progress Note Date: 05/08/19 Principal diagnosis: Left breast mastectomy with subpectoral implant placement, sentinel node biopsy Laura is a 53-year-old white female postop day #2 left breast skin sparing mastectomy with subpectoral implant placement. She also had sentinel node biopsy. Postoperatively she is doing well but complains of discomfort at the mastectomy site which has improved. Objective - Vital Signs Vital signs: Vital Signs Temp 98.1 F 05/07/19 23:00 Pulse 63 05/07/19 23:00 Resp 18 05/07/19 23:00 BP 156/87 05/07/19 23:00 Pulse Ox 96 05/07/19 23:00 Intake & Output 05/07/19 05/08/19 05/08/19 18:59 06:59 18:59 Intake Total 1000 1910 Output Total 45 15 Balance 955 1895 Intake: Oral 1000 1910 Output: Drainage 45 15 Left Breast 45 15 Other: Voiding Method Toilet # Voids 1 - Exam BMI 24.3 - Constitutional General appearance: Present: average body habitus - EENT Eyes: Present: EOMI ENT: Present: hearing grossly normal - Neck Neck: Present: normal ROM - Respiratory Respiratory: bilateral: CTA - Cardiovascular Rhythm: regular Heart sounds: normal: S1, S2 - Integumentary Integumentary Comment(s): Incision axilla clean and dry no hematoma or evidence of infection Incision breasts clean and dry no infection or hematoma - Psychiatric Psychiatric: Present: A&O x's 3, appropriate affect, intact judgment & insight - Labs CBC & Chem 7: 05/07/19 08:09 Labs: Abnormal Lab Results - Last 24 Hours (Table) 05/07/19 Range/Units 08:09 RBC 3.52 L (3.80-5.40) m/uL Hgb 11.0 L (11.4-16.0) gm/dL Hct 32.6 L (34.0-46.0) % Assessment and Plan Assessment: Impression 1. Patient postop day #2 left breast skin sparing mastectomy with sentinel node biopsy and subpectoral implant placement 2. Patient postoperative discomfort improved Plan: 1. Discharge home to be followed as outpatient 2. Teach patient drain care
--- NOTE | 2019-05-08 08:10 | P.DS ---
Providers Date of admission: 05/07/19 04:02 Attending physician: Trini Benedict Consults: 05/07/19 11:12 Consult Physician Urgent Consulting Provider: David Sears Consult Reason/Comments: medical management Do you want consulting provider notified?: Yes Primary care physician: Argenis Payne Plan - Discharge Summary Discharge Rx Participant: No New Discharge Prescriptions: No Action Venlafaxine HCl [Effexor XR] 112.5 mg PO QAM Losartan Potassium [Cozaar] 50 mg PO QAM Ibuprofen [Motrin] 800 mg PO TID PRN PRN Reason: Pain Acetaminophen Tab [Tylenol Tab] 1,000 mg PO Q6HR PRN PRN Reason: Pain Discharge Medication List Ibuprofen [Motrin] 800 mg PO TID PRN 02/25/19 [History] Losartan Potassium [Cozaar] 50 mg PO QAM 02/25/19 [History] Venlafaxine HCl [Effexor XR] 112.5 mg PO QAM 02/25/19 [History] Acetaminophen Tab [Tylenol Tab] 1,000 mg PO Q6HR PRN 05/02/19 [History] Follow up Appointment(s)/Referral(s): Trini Benedict MD [STAFF PHYSICIAN] - 1 Week Activity/Diet/Wound Care/Special Instructions: Teach patient drain care Do not drive until seen by Dr. Peters Follow-up Dr. Latham next week Discharge Disposition: HOME SELF-CARE
[2019-05-08] MEDS: LOSARTAN 50 MG TAB PO SCH (08:18)
[2019-05-08] MEDS: FAMOTIDINE 20 MG TAB PO SCH (08:18)
[2019-05-08] MEDS: VENLAFAXINE HCL ER 37.5 MG CAP PO SCH (08:18)
[2019-05-08 09:11] VITALS: BP 125/76; PULSE 70; RESP 16; TEMP 97.8
== END 2019-05-08 10:45 | disposition home or self-care (01) ==
LOC: OR 08:52 → 6PED 14:55 → OR 05-07 04:02 → 6PED 05-07 04:02
PROVIDERS: ADMIT Surgery; ATTEND Surgery
DX: C50.912 Malignant neoplasm of unspecified site of left female breast (principal); Z90.12 Acquired absence of left breast and nipple; I10 Essential (primary) hypertension; M19.90 Unspecified osteoarthritis, unspecified site; F41.0 Panic disorder [episodic paroxysmal anxiety]; F17.210 Nicotine dependence, cigarettes, uncomplicated; Z79.899 Other long term (current) drug therapy; Z88.1 Allergy status to other antibiotic agents; Z88.2 Allergy status to sulfonamides
CPT/HCPCS: 19307; 19357; 81025; 88305; 85025; 88342; 88331; 88307; 88309; 88341; 38792; G0378 ×2; C1763; A9520; J2250; J1644 ×3; J1100; J2405; J0690 ×2; J2001; J3010; J1885; J1170 ×3; J2370; J0330; J2704

== ENCOUNTER → 2019-05-16 | Outpatient (CLI) | payer BC ==
--- NOTE | 2019-05-16 16:21 | P.PN ---
Progress Note - Text Progress Note Date: 05/16/19 Laura is a 53-year-old white female postop left mastectomy and sentinel node/axillary node resection. Her pathology did not reveal residual cancer and sentinel node was negative for cancer. She did have multiple intraductal papillomas present. The patient states it is uncomfortable for her but she is doing well. Her PORTER drain was removed approximately a week ago. Physical exam: Heart: Regular rate and rhythm Lungs: Clear to Left breast incision clean and dry no evidence of infection Impression: 1. Patient status post left mastectomy with sentinel node sampling 2. Patient following with Dr. Latham she had immediate subpectoral implant insertion 3. Patient will follow with medical oncology 4. Patient to follow. 3 months time Cc: Dr. Payne
[2019-05-16 16:23] VITALS: BP 109/73; PULSE 92; RESP 19; TEMP 98.9; BMI 24.7
== END | disposition home or self-care (01) ==
LOC: WWCWWP 16:01
PROVIDERS: ATTEND Surgery
DX: Z53.9 Procedure and treatment not carried out, unspecified reason (principal)

== ENCOUNTER → 2019-08-15 | Outpatient (CLI) | payer BC ==
[2019-08-15 16:22] VITALS: BP 123/83; PULSE 88; RESP 18; TEMP 98
--- NOTE | 2019-08-15 16:35 | P.PN ---
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 Pathology revealed malignant neoplasia with squamous differentiation. Favor metaplastic mammary cancer. She subsequently underwent a left breast mastectomy with subpectoral implant reconstruction on 9318. Pathology revealed multiple intraductal papillomas. Her lymph nodes were negative. She was seen by medical oncology the lesion was ER/OK positive and HER-2 negative patient was started on tamoxifen. She did not have any radiation therapy. At this time she is doing well and willl see Dr. Yeison fonseca [facility] for of the labor relations supervisor and placement of the permanent implant. At this time she does not have any complaints. Objective - Vital Signs Vital signs: Vital Signs Temp 98.0 F 08/15/19 16:15 Pulse 88 08/15/19 16:15 Resp 18 08/15/19 16:15 BP 123/83 08/15/19 16:15 Pulse Ox 98 08/15/19 16:15 Intake & Output 08/14/19 08/15/19 08/15/19 18:59 06:59 18:59 Weight 60.781 kg - Exam BMI 24.5 - Constitutional General appearance: Present: average body habitus - EENT Eyes: Present: EOMI ENT: Present: hearing grossly normal - Respiratory Respiratory: bilateral: CTA - Cardiovascular Rhythm: regular Heart sounds: normal: S1, S2 - Gastrointestinal General gastrointestinal: Present: normal bowel sounds, soft - Integumentary Integumentary: Present: normal turgor - Musculoskeletal Musculoskeletal: Present: gait normal - Psychiatric Psychiatric: Present: A&O x's 3, appropriate affect, intact judgment & insight - Additional findings Additional findings: breast exam: breasts: Multiple positional exam no dominant masses or nodules of concern Right axilla: No adenopathy of concern Left chest wall: Subpectoral implant labor relations supervisor in place ready to be removed in permanent implant to be placed No evidence of recurrent cancer Left axilla: No adenopathy of concern Assessment and Plan Assessment: Impression:: 1. Patient status post left breast mastectomy for metaplastic breast cancer believed to be stage IA 2. Subpectoral labor relations supervisor in place patient to have this removed and permanent implant placed 3. Patient doing well without complaints 4. patient is not post menopausal 5. left breast mammogram in February of 2020 Plan: 1. follow up with DR. Holm 2. follow up here in 4 months 3. continue tamoxifen, patient is not post-menopausal CC: DR. Payne Time with Patient: Less than 30
== END | disposition home or self-care (01) ==
LOC: WWCWWP 15:37
PROVIDERS: ATTEND Surgery
DX: Z53.9 Procedure and treatment not carried out, unspecified reason (principal)

== ENCOUNTER 2019-09-16 09:50 | Day surgery (SDC) | payer BC ==
[2019-09-12 16:58] VITALS: BMI 25.0
[~2019-09-16 09:50] MED LIST changes: -HEPARIN SODIUM,PORCINE 5,000 UNIT/ML 1 ML VIAL SQ ONE; +HYDROmorphone 0.5 MG/0.5 ML SYRINGE IVP PRN; +LACTATED RINGERS 1,000 ML IV SCH; +LIDOCAINE 1% 20 ML VIAL (10MG/ML) FOR IV START INTRADERMA PRN; +MIDAZOLAM 2 MG/2 ML VIAL IV PRN; -Pre Op ABX Message 1 EACH MISC MISCELLANE ONE; +SCOPOLAMINE 1.5MG/72HR PATCH TRANSDERM ONE
[2019-09-16] MEDS ORDERED: GLYCOPYRROLATE 0.2 MG/ML 2 ML VIAL ONE (12:05)
[2019-09-16] MEDS ORDERED: MIDAZOLAM 2 MG/2 ML VIAL ONE (12:05)
[2019-09-16] MEDS ORDERED: ROCURONIUM BROMIDE 10 MG/ML 10 ML VIAL IV ONE (12:05)
[2019-09-16] MEDS ORDERED: fentaNYL (PF) 50 MCG/ML 2 ML AMP ONE (12:05)
[2019-09-16] MEDS ORDERED: NEOSTIGMINE 1 MG/ML 10 ML VIAL ONE (12:05)
[2019-09-16] MEDS ORDERED: PROPOFOL 10 MG/ML 20 ML VIAL IV ONE (12:05)
[2019-09-16] MEDS ORDERED: PHENYLEPHRINE-0.9% NACL SYG 1 MG/10 ML SYRINGE ONE (12:05)
[2019-09-16] MEDS ORDERED: HYDROmorphone (PF) 1 MG/ML ONE (12:05)
[2019-09-16] MEDS ORDERED: LIDOCAINE 1% INJ 10MG/ML (20 ML MDV) ONE (12:05)
[2019-09-16 13:59] VITALS: TEMP 97
[2019-09-16 14:13] VITALS: RESP 16
[2019-09-16 15:30] VITALS: BP 136/66; PULSE 82
--- NOTE | 2019-09-16 18:12 | OP ---
OPERATIVE REPORT DATE OF PROCEDURE: 09/16/2019. SURGEON: Dr. Pradeep Novak. PREOPERATIVE DIAGNOSES: 1. Acquired loss, left breast. 2. Personal history of breast cancer, left breast. 3. Personal history of mastectomy, left breast. 4. Acquired loss, left inframammary fold. 5. Acquired deformity, left reconstructed breast. POSTOPERATIVE DIAGNOSES: 1. Acquired loss, left breast. 2. Personal history of breast cancer, left breast. 3. Personal history of mastectomy, left breast. 4. Acquired loss, left inframammary fold. 5. Acquired deformity, left reconstructed breast. OPERATIVE PROCEDURE: 1. Replace left breast tissue bulk picker with silicone breast implant for breast reconstruction. 2. Revision, left reconstructed breast. 3. Reconstruction, left breast inframammary fold via local advancement flap, 36 square cm. 4. Implantation of reconstructive graft for left breast reconstruction. OPERATIVE INDICATIONS: Patient is a 53-year-old female who has undergone left mastectomy for treatment of breast cancer. She elected to proceed with immediate reconstruction following her mastectomy, and a tissue bulk picker was placed underneath the multi-component muscle flap. She has completed subsequent outpatient expansion. She is returning to surgery today for second stage of her breast reconstruction, which will include replacement of her bulk picker, silicone breast implant, revision of reconstructed breast due to multiple contour irregularities and deformities caused by the mastectomy and expansion processes as well as reconstruction, inframammary fold that has been effaced by the mastectomy and expansion process. The patient understands the potential risks and complications related to the surgery and has requested I perform the surgery. OPERATIVE PROCEDURE SUMMARY: The patient was seen in the presurgical area. Markings were made and procedure reviewed. All questions were answered. She was transported to the operating room, where she was placed in supine position. Following induction of general endotracheal anesthesia, the patient was prepped and draped in the usual fashion. Diagram for incision was made over the left reconstructed breast in the central portion involving the area of the prior mastectomy scar. Incision was then made dividing the skin in full-thickness fashion. A 10 blade scalpel followed by via subcutaneous tissue until reaching the underlying muscle flap layer. Skin and subcutaneous tissue flaps were then elevated off the muscle flap layer. Extensive dissection was required to release contour irregularities. Once this was completed, irrigation was performed. Hemostasis was excellent. A lower transverse incision was made through the muscle flap tissue exposing the bulk picker. The bulk picker was removed intact. The expansion cavity appeared normal. Some clear serous fluid. No granulation tissue. No exudates. The cavity was irrigated. A complete capsulotomy incision was made where the capsule joined the chest wall circumferentially. Cruciate incisions through the rest of the capsular structure remained medially, anterior and laterally and inferiorly. A linear incision was made through the capsular structure to release the tightness. With this completed, inframammary fold was now developed by creating a skin and subcutaneous tissue flap in the inframammary region. The flap measured 18 cm transversely, 2 cm vertically, was elevated through the inferior capsulotomy incision with cauterization. Once elevated, the flap was advanced in a cephalad fashion and secured to the chest wall rib periosteal tissue in several interrupted discrete locations using 0 Vicryl, creating inframammary fold in a symmetrical location to the right side. With this completed, irrigation was performed. Hemostasis excellent. Temporary breast implant sizers were opened on the field. Muscle sizers were tried. Ultimately a 300 mL Sizer appeared optimal with the patient seated up. Incision closed with temporary shante. She was returned to supine position. [place] were removed and temporary breast implant Sizer removed. Cavity irrigated. Hemostasis was excellent. Gloves were changed. Silicone breast implant was opened onto the field from the [employer]: smooth round high-profile 300 mL volume, reference #[id number], serial #[id number]. The device was only handled by the surgeon. It was irrigated with saline, inserted directly in the reconstructive cavity under direct vision. The muscle flap tissue was advanced over the implant but could not completely close with the implant without causing distortion. Therefore, a reconstructive graft was opened on the field. The graft opened was SurgiMend PRS thin and fenestrated measuring 10 x 15 cm. Once revitalized with room- temperature saline, the entire sheet of SurgiMend was inserted in the reconstructive cavity, oriented inferior sling formation and secured to just above the inframammary fold reconstructive flap inset using interrupted and short running 3-0 Vicryl sutures. It was then inset to the other edge of the muscle located cephalad with short running interrupted 3-0 Vicryl sutures. Complete coverage of the implant was now obtained. The incision was now closed, approximating the deep dermis using inverted interrupted 4- 0 Monocryl followed by closure of superficial dermis epidermis with running 5-0 Prolene. Surgical field was cleansed with saline, dried and postoperative bandages placed using sterile 1-inch paper tape, Kerlix squares and then positioned a size 3 mammary support with additional gauze padding. The patient was then awakened from her anesthetic, extubated in the operating room and transferred to the recovery room in good condition with stable vital signs. There were no complications. DIANA / BELENN: [phone] /
== END 2019-09-16 15:38 | disposition home or self-care (01) ==
LOC: OR 09:50
PROVIDERS: ATTEND Plastic Surgery
DX: N65.0 Deformity of reconstructed breast (principal); Z90.12 Acquired absence of left breast and nipple; Z85.3 Personal history of malignant neoplasm of breast; F32.9 Major depressive disorder, single episode, unspecified; I10 Essential (primary) hypertension; F17.210 Nicotine dependence, cigarettes, uncomplicated; Z85.828 Personal history of other malignant neoplasm of skin; Z88.2 Allergy status to sulfonamides
CPT/HCPCS: 11970; 19380; 81025; 14301; C1789; C1763; J2250; J1100; J2710; J0690; J2405; J2001; J3010; J1170 ×2; J2370; J2704

== ENCOUNTER 2019-09-20 20:33 | Emergency (ER) | payer BC ==
[2019-09-20 20:39] VITALS: BP 150/87; PULSE 95; RESP 16; TEMP 98.3
--- NOTE | 2019-09-20 21:44 | XR ---
Right hand HISTORY: Pain 3 views of the right hand Bone mineralization, joint spaces and alignment are maintained with exception carpal metacarpal joint first digit. Some underlying arthropathy carpometacarpal joint of the first digit. IMPRESSION: No fracture or dislocation. Osteoarthritis.
--- NOTE | 2019-09-20 22:19 | ED ---
Upper Extremity HPI - General Chief Complaint: Extremity Injury, Upper Stated Complaint: Hand pain Time Seen by Provider: 09/20/19 20:48 Source: patient Mode of arrival: ambulatory Limitations: no limitations - History of Present Illness Initial Comments: 51-year-old female patient presents to the emergency department today for evaluation of right hand pain. Patient states the pain started suddenly when she was pushing herself up off the couch. States she felt a snapping in her a snapping sound in the hand when this happened. Patient states she is now having severe pain with movement of her thumb. Denies any numbness or tingling. Denies any other injuries. Patient denies any headache, neck pain, back pain, chest pain, shortness of breath, dizziness, weakness, abdominal pain, nausea, vomiting, or difficulties with bowel movements or urination. - Related Data Home Medications Medication Instructions Recorded Confirmed Losartan Potassium [Cozaar] 50 mg PO QAM 02/25/19 09/16/19 Venlafaxine HCl [Effexor XR] 112.5 mg PO QAM 02/25/19 09/16/19 Tamoxifen [Nolvadex] 20 mg PO QAM 08/15/19 09/16/19 Previous Rx's Medication Instructions Recorded Hydrocodone/Acetaminophen [[place] 1 each PO Q6HR PRN #28 tab 09/16/19 5-325] Allergies Allergy/AdvReac Type Severity Reaction Status Date / Time Sulfa (Sulfonamide Allergy Severe Rash/Hives Verified 09/20/19 20:39 Antibiotics) Review of Systems ROS Statement: Those systems with pertinent positive or pertinent negative responses have been documented in the HPI. ROS Other: All systems not noted in ROS Statement are negative. Past Medical History Past Medical History: Cancer, Hypertension, Osteoarthritis (OA) Additional Past Medical History / Comment(s): left breast CA-dx March 2019. lower left back Degenerative disc disease/pain. basal cell skin cancer on right nostril History of Any Multi-Drug Resistant Organisms: None Reported Past Surgical History: Breast Surgery, Section Additional Past Surgical History / Comment(s): x 1 (1994). cervical laser ablation in 2005 (cervical dysplasia). left breast excisional biopsyx2. Left mastectomy and sentinal node biopsy 05/06/2019. reconstruction 09/2019 Past Anesthesia/Blood Transfusion Reactions: No Reported Reaction Additional Past Anesthesia/Blood Transfusion Reaction / Comment(s): No blood transfusion to date Past Psychological History: Panic Disorder Smoking Status: Current every day smoker Past Alcohol Use History: None Reported Past Drug Use History: None Reported - Past Family History Father Additional Family Medical History / Comment(s): patients paternal grandfather from lung cancer at age 80. Mother Family Medical History: Hyperlipidemia, Hypertension Brother(s) Family Medical History: No Reported History Daughter(s) Family Medical History: No Reported History Son(s) Family Medical History: No Reported History Additional Family Medical History / Comment(s): DDD General Exam Limitations: no limitations General appearance: alert, in no apparent distress, other (This well-developed, well-nourished adult female patient in no acute distress. Vital signs upon presentation are temperature 98.3F, pulse 95, respirations 16, blood pressure 150/87, pulse ox 98% on room air.) Eye exam: Present: normal appearance, PERRL, EOMI. Absent: scleral icterus, conjunctival injection, periorbital swelling ENT exam: Present: normal exam, normal oropharynx, mucous membranes moist Respiratory exam: Present: normal lung sounds bilaterally. Absent: respiratory distress, wheezes, rales, rhonchi, stridor Cardiovascular Exam: Present: regular rate, normal rhythm, normal heart sounds. Absent: systolic murmur, diastolic murmur, rubs, gallop, clicks Extremities exam: Present: normal inspection, full ROM, tenderness (Over the dorsal aspect of the right thumb and hand.), normal capillary refill, other (Skin to the hand is pink, warm, dry. Cap refills less than 3 seconds. Radial pulses 2+ and equal bilaterally.). Absent: pedal edema, joint swelling, calf tenderness Neurological exam: Present: alert, oriented X3, CN II-XII intact Psychiatric exam: Present: normal affect, normal mood Skin exam: Present: warm, dry, intact, normal color. Absent: rash Course Vital Signs 09/20/19 20:36 Temperature 98.3 F Pulse Rate 95 Respiratory 16 Rate Blood Pressure 150/87 O2 Sat by Pulse 98 Oximetry Procedures - Orthopedic Splinting/Casting Injury #1 Side: right Upper Extremity Injury Location: short arm, hand Upper Extremity Immobilizer: thumb spica, [place] wrap Additional Comments: Neurovascular status intact after splint application. Skin to the [place] pink, warm, dry. Cap refills less than 3 seconds patient denies numbness or tingling. Medical Decision Making - Medical Decision Making 53-year-old female patient presented for evaluation of right thumb pain after pushing herself up off the couch which did hear a snapping sound. Physical examination reveals tenderness over the thumb. Decreased range of motion. X- rays are negative. There is concern for tendon injury. She is placed in a thumb spica splint. Discharged follow up with explosive ordnance disposal specialist. Return parameters discussed in detail. She verbalizes understanding and agrees with this plan. - Radiology Data Radiology results: report reviewed, image reviewed 3 views of the right hand are obtained. Report reviewed in its entirety. Impression by Dr. Sterling shows no fracture or dislocation. Osteoarthritis Disposition Clinical Impression: Injury of tendon of right hand Disposition: HOME SELF-CARE Condition: Good Instructions (If sedation given, give patient instructions): Tendon Rupture (ED) Additional Instructions: Leave splint in place until follow-up with explosive ordnance disposal specialist. Take, Motrin for pain control. Follow-up as soon as possible with orthopedics, number has been provided below. Follow up with her primary care physician for recheck in 1-2 days. Return to the emergency department immediately for any new, worsening, or concerning symptoms. Is patient prescribed a controlled substance at d/c from ED?: No Referrals: Argenis Payne MD [Primary Care Provider] - 1-2 days Allen Curran DO [Doctor of Osteopathic Medicine] - 1-2 days Time of Disposition: 22:19
== END 2019-09-20 22:35 | disposition home or self-care (01) ==
LOC: EC 20:33
DX: S66.901A Unspecified injury of unspecified muscle, fascia and tendon at wrist and hand level, right hand, initial encounter (principal); I10 Essential (primary) hypertension; F17.200 Nicotine dependence, unspecified, uncomplicated; Z79.899 Other long term (current) drug therapy; Z88.2 Allergy status to sulfonamides; Z85.828 Personal history of other malignant neoplasm of skin; Z85.3 Personal history of malignant neoplasm of breast; Z90.12 Acquired absence of left breast and nipple; X50.9XXA Other and unspecified overexertion or strenuous movements or postures, initial encounter
CPT/HCPCS: 29125; 99283

== ENCOUNTER → 2020-05-28 | Outpatient (CLI) | payer BC ==
--- NOTE | 2020-05-31 08:27 | MM ---
Reason for exam: additional evaluation requested from prior study. Last mammogram was performed 1 year and 2 months ago. History: Patient has history of breast cancer at age 53, has history of high-risk lesion on a previous biopsy at age 53, and history of other cancer. Mastectomy of the left breast, May 06, 2019. Malignant US biopsy breast VAD LT of the left breast, April 04, 2019. Malignant US biopsy breast add'l VAD LT of the left breast, April 04, 2019. High risk US biopsy breast VAD LT of the left breast, March 11, 2019. High risk US biopsy breast add'l VAD LT of the left breast, March 11, 2019. Taking antineoplastic beginning at age 53. Physical Findings: Nurse did not find any significant physical abnormalities on exam. MG 3D Diag Mammo W/Cad RT CC and MLO view(s) were taken of the right breast. Prior study comparison: April 04, 2019, left breast MG diagnostic mammo LT wo CAD. March 11, 2019, left breast MG diagnostic mammo LT wo CAD. The breast tissue is heterogeneously dense. This may lower the sensitivity of mammography. No significant new findings when compared with previous films. These results were verbally communicated with the patient and result sheet given to the patient on 05/28/20. ASSESSMENT: Benign, BI-RAD 2 RECOMMENDATION: Follow-up diagnostic mammogram of the right breast in 1 year.
== END | disposition home or self-care (01) ==
LOC: RADMAMWWP 14:18
PROVIDERS: ATTEND Surgery
DX: R92.8 Other abnormal and inconclusive findings on diagnostic imaging of breast (principal)
CPT/HCPCS: 77061; 77065

== ENCOUNTER → 2020-06-09 | Outpatient (CLI) | payer BC | END | disposition home or self-care (01) | LOC: LABWHC1 11:52 | PROVIDERS: ATTEND Internal Medicine | DX: R05 Cough (principal) | CPT/HCPCS: U0003; C9803 ==

== ENCOUNTER → 2020-06-16 | Outpatient (CLI) | payer BC | END | disposition home or self-care (01) | LOC: LABWHC1 10:07 | PROVIDERS: ATTEND Internal Medicine | DX: R05 Cough (principal) | CPT/HCPCS: U0003; C9803 ==

== ENCOUNTER → 2020-06-24 | Outpatient (CLI) | payer BC ==
[2020-06-24 15:54] VITALS: BP 136/83; PULSE 98; RESP 16; TEMP 98.4
--- NOTE | 2020-06-24 16:01 | P.PN ---
Subjective Progress Note Date: 06/24/20 Principal diagnosis: Left breast stage IA cancer/status post mastectomy on 9318 Laura is a 53-year-old white female status post ultrasound-guided core biopsy of the left breast which revealed malignant neoplasia with squamous differentiation. Favor metaplastic mammary cancer. She subsequently underwent a left breast mastectomy with subpectoral implant reconstruction and 9318. Pathology revealed multiple intraductal papillomas. Her lymph nodes were negative. She was seen by medical oncology the lesion was here. Positive and HER-2 negative and she was started on tamoxifen. She did not have any radiation therapy. She is doing well, reconstruction as per Dr. Latham. Complaining of any lumps masses or nodules in the right breast. She underwent a right breast mammogram on this was benign BIRADS 2. Family history: 1.grandfather paternal: lung 2. Patient with a history of basal cell carcinoma in her nose Clinical history: Menarche:12 , 1 stillborn, age at first live : 22, breast fed: no menopasue: last period in November BCP: 2 years hormones: none Surgical history: 1. 2. Cervical laser ablation 3. Basal cell carcinoma on her nose 4. left breast mastectomy and reconstruction/SNB Medical History: 1. HTN 2. back pain Social History: smoke: 1/PPD, 25 years alcohol: used to drink daily, none now drugs: none - Constitutional Constitutional: Denies chills, Denies fever - EENT Eyes: denies blurred vision, denies pain Ears: bilateral: decreased hearing, deny: tinnitus Ears, nose, mouth and throat: Denies headache, Denies sore throat - Breasts Breasts: bilateral: as per HPI - Cardiovascular Cardiovascular: Reports high blood pressure, Denies chest pain, Denies shortness of breath - Respiratory Comment: smoker - Gastrointestinal Gastrointestinal: Denies abdominal pain, Denies diarrhea, Denies nausea, Denies vomiting - Genitourinary (Female) Genitourinary: Denies dysuria, Denies hematuria - Menstruation Comment: marek-menopausal - Musculoskeletal Comment: back pain Musculoskeletal: Denies myalgias - Integumentary Comment: basal cell cancer on nose - Neurological Neurological: Denies numbness, Denies weakness - Psychiatric Psychiatric: Reports anxiety - Endocrine Endocrine: Denies fatigue, Denies weight change - Hematologic/Lymphatic Comment: motrin as needed for back pain - Allergic/Immunologic Allergic/Immunologic: Reports as per HPI Objective - Vital Signs Vital signs: Intake & Output 06/23/20 06/24/20 06/24/20 18:59 06:59 18:59 Weight 68.039 kg - Exam BMI 27.4 - Constitutional General appearance: Present: average body habitus - EENT Eyes: Present: EOMI ENT: Present: hearing grossly normal - Neck Neck: Present: normal ROM - Respiratory Respiratory: bilateral: CTA - Cardiovascular Rhythm: regular Heart sounds: normal: S1, S2 - Gastrointestinal General gastrointestinal: Present: soft - Integumentary Integumentary: Present: normal turgor - Musculoskeletal Musculoskeletal: Present: gait normal - Psychiatric Psychiatric: Present: A&O x's 3, appropriate affect, intact judgment & insight - Additional findings Additional findings: Breast exam: BRA: 36B inspection: grade 2 ptosis of the right nipple, reconstruction left breast Palpation: Right breast: Multi-positional exam no dominant masses or nodules of concern Right axilla: No adenopathy of concern Left breast: Reconstructed breasts no evidence of recurrent cancer incision clean and dry well-healed Left axilla: No adenopathy of concern Assessment and Plan Assessment: Impression: 1. Patient status post left breast mastectomy with sentinel node biopsy for stage I a metaplastic breast cancer at this time she has no evidence of any recurrent disease 2. Patient on tamoxifen 3. Patient did not need any radiation therapy 3. Patient had immediate reconstruction of the left breast Plan: 1. Follow-up in 6 months for surveillance 2. Continue tamoxifen 3. Continue to follow with medical oncology Cc: Dr. Payne encounter 15 minutes, > 50% of time in planning and counselling
== END | disposition home or self-care (01) ==
LOC: WWCWWP 15:37
PROVIDERS: ATTEND Surgery
DX: Z53.9 Procedure and treatment not carried out, unspecified reason (principal)

== ENCOUNTER → 2020-12-23 | Outpatient (CLI) | payer BC ==
[2020-12-23 13:00] VITALS: BP 146/89; PULSE 74; RESP 18; TEMP 98.2
--- NOTE | 2020-12-23 13:23 | P.PN ---
Subjective Progress Note Date: 12/23/20 Principal diagnosis: Left breast stage IA cancer/status post mastectomy on 9318 Left breast stage IA cancer/status post mastectomy on 9318 Laura is a 53-year-old white female status post ultrasound-guided core biopsy of the left breast which revealed malignant neoplasia with squamous differentiation. Favor metaplastic mammary cancer. She subsequently underwent a left breast mastectomy with subpectoral implant reconstruction on 9318. Pathology revealed multiple intraductal papillomas. Her lymph nodes were negative. She was seen by medical oncology the lesion was here. Positive and HER-2 negative and she was started on tamoxifen. She did not have any radiation therapy. She is doing well, reconstruction as per Dr. Latham. She is not complaining of any lumps masses or nodules in the right breast. She underwent a right breast mammogram on this was benign BIRADS 2. She started tamoxifen in June 2019, she is tolerating this however she has had some weight gain. She has yearly pelvic exams through Dr. Payne. She has no complaints related to her breast. She has no concerns related to her left chest wall. Her father from COVID August 04, 2020 and she is very sad. Her mother is now living with her. She has had Moderna vaccination in her second shot was November 27, 2020. Family history: 1.grandfather paternal: lung 2. Patient with a history of basal cell carcinoma in her nose Clinical history: Menarche:12 , 1 stillborn, age at first live : 22, breast fed: no menopasue: last period in November BCP: 2 years hormones: none Surgical history: 1. 2. Cervical laser ablation 3. Basal cell carcinoma on her nose 4. left breast mastectomy and reconstruction/SNB Medical History: 1. HTN 2. back pain Social History: smoke: 1/PPD, 25 years alcohol: used to drink daily, none now drugs: none - Constitutional Constitutional: Denies chills, Denies fever - EENT Eyes: denies blurred vision, denies pain Ears: bilateral: decreased hearing, deny: tinnitus Ears, nose, mouth and throat: Denies headache, Denies sore throat - Breasts Breasts: bilateral: as per HPI - Cardiovascular Cardiovascular: Reports high blood pressure, Denies chest pain, Denies shortness of breath - Respiratory Comment: smoker - Gastrointestinal Gastrointestinal: Denies abdominal pain, Denies diarrhea, Denies nausea, Denies vomiting - Genitourinary (Female) Genitourinary: Denies dysuria, Denies hematuria - Menstruation Comment: marek-menopausal - Musculoskeletal Comment: back pain Musculoskeletal: Denies myalgias - Integumentary Comment: basal cell cancer on nose - Neurological Neurological: Denies numbness, Denies weakness - Psychiatric Psychiatric: Reports anxiety - Endocrine Endocrine: Denies fatigue, Denies weight change - Hematologic/Lymphatic Comment: motrin as needed for back pain - Allergic/Immunologic Allergic/Immunologic: Reports as per HPI Objective - Vital Signs Vital signs: Vital Signs Temp 98.2 F 12/23/20 12:58 Pulse 74 12/23/20 12:58 Resp 18 12/23/20 12:58 BP 146/89 12/23/20 12:58 Pulse Ox 98 12/23/20 12:58 Intake & Output 12/22/20 12/23/20 12/23/20 18:59 06:59 18:59 Weight 70.307 kg - Exam BMI 28.3 - Constitutional General appearance: Present: average body habitus - EENT Eyes: Present: EOMI ENT: Present: hearing grossly normal - Neck Neck: Present: normal ROM - Respiratory Respiratory: bilateral: CTA - Cardiovascular Rhythm: regular Heart sounds: normal: S1, S2 - Integumentary Integumentary: Present: normal turgor - Musculoskeletal Musculoskeletal: Present: gait normal - Psychiatric Psychiatric: Present: A&O x's 3, appropriate affect, intact judgment & insight - Additional findings Additional findings: Brest exam: BRA: 36C inspection: Right breast a grade 2 ptosis, left breast reconstruction well- healed scar Palpation: Right breast: Multiple positional exam fibrocystic changes no dominant masses or nodules of concern Right axilla: Shotty axillary lymph nodes patient had cold vaccine and the SideArm approximately 2 months ago Left chest wall: Reconstructed breast healing well no evidence of recurrent cancer Left axilla: No adenopathy of concern Assessment and Plan Assessment: Impression: 1. Note from Dr. Fry appreciated and reviewed from [id number] 2. No evidence of recurrent left breast cancer 3. Fibrocystic right breast/last mammogram in May 2020 4. Right axillary shotty adenopathy/patient recently had cold vaccination in that arm will follow that Plan: 1. Continue tamoxifen 2. Patient to follow adenopathy if it becomes more pronounced she will call us 3. Repeat right breast mammogram in May physician exam at that time CC: DR. Payne
== END | disposition home or self-care (01) ==
LOC: WWCWWP 12:37
PROVIDERS: ATTEND Surgery
DX: N60.11 Diffuse cystic mastopathy of right breast (principal); I10 Essential (primary) hypertension; F17.210 Nicotine dependence, cigarettes, uncomplicated; F41.9 Anxiety disorder, unspecified; Z85.3 Personal history of malignant neoplasm of breast; Z90.12 Acquired absence of left breast and nipple

== ENCOUNTER → 2021-05-30 | Outpatient (CLI) | payer BC ==
--- NOTE | 2021-05-30 11:15 | MM ---
Reason for exam: additional evaluation requested from prior study. Last mammogram was performed 1 year ago. History: Patient has history of breast cancer at age 53, has history of high-risk lesion on a previous biopsy at age 53, and has history of other cancer at age 52. Mastectomy of the left breast, May 06, 2019. Malignant US biopsy breast VAD LT of the left breast, April 04, 2019. Malignant US biopsy breast add'l VAD LT of the left breast, April 04, 2019. High risk US biopsy breast VAD LT of the left breast, March 11, 2019. High risk US biopsy breast add'l VAD LT of the left breast, March 11, 2019. Implant in the left breast, 2019. Reconstruction of the left breast, 2019. Taking antineoplastic for 2 years beginning at age 53. Physical Findings: Nurse did not find any significant physical abnormalities on exam. MG 3D Diag Mammo W/Cad RT CC and MLO view(s) were taken of the right breast. Prior study comparison: May 28, 2020, right breast MG 3d diag mammo w/cad RT. February 06, 2019, bilateral MG 3d diag mammo w/cad QUIN. The breast tissue is heterogeneously dense. This may lower the sensitivity of mammography. No significant new findings when compared with previous films. These results were verbally communicated with the patient and result sheet given to the patient on 05/30/21. ASSESSMENT: Benign, BI-RAD 2 RECOMMENDATION: Follow-up diagnostic mammogram of the right breast in 1 year.
== END | disposition home or self-care (01) ==
LOC: RADMAMWWP 10:06
PROVIDERS: ATTEND Surgery
DX: R92.2 Inconclusive mammogram (principal); Z85.3 Personal history of malignant neoplasm of breast
CPT/HCPCS: 77061; 77065

== ENCOUNTER → 2021-06-03 | Outpatient (CLI) | payer BC ==
[2021-06-03 12:50] VITALS: BP 124/61; PULSE 99; RESP 12; TEMP 98.4
--- NOTE | 2021-06-03 13:10 | P.PN ---
Subjective Progress Note Date: 06/03/21 Principal diagnosis: stage IA left breast cancer/ this was metaplastic carcinoma with squamous differentiation Left breast stage IA cancer/status post mastectomy on 9318 Laura is a 53-year-old white female status post ultrasound-guided core biopsy of the left breast which revealed malignant neoplasia with squamous differentiation. Favor metaplastic mammary cancer. She subsequently underwent a left breast mastectomy with subpectoral implant reconstruction on 9318. Pathology revealed multiple intraductal papillomas. Her lymph nodes were negative. She was seen by medical oncology. It was Er+Pr+ and HER-2 negative and she was started on tamoxifen. She has no complaints related to the tamoxifen. She did not have any radiation therapy. She is doing well, reconstruction as per Dr. Latham. She started tamoxifen in June 2019, she is tolerating this however she has had some weight gain. She has yearly pelvic exams through Dr. Payne, Appt July. She has no complaints related to her breast. She has no concerns related to her left chest wall. Her father from COVID August 04, 2020 and she is very sad. Her mother is now living with her. She has had Moderna vaccination in her second shot was November 27, 2020. She had flu like symptoms after the first vaccine. Right breast mammogram on 05-30-21 Benign BIRAD 2 Patient has no complaints related to her right breast or her left chest wall at this time[place] [id number] reviewed. Family history: 1.grandfather paternal: lung 2. Patient with a history of basal cell carcinoma in her nose Clinical history: Menarche:12 , 1 stillborn, age at first live : 22, breast fed: no menopasue: last period in November BCP: 2 years hormones: none Surgical history: 1. 2. Cervical laser ablation 3. Basal cell carcinoma on her nose 4. left breast mastectomy and reconstruction/SNB Medical History: 1. HTN 2. back pain Social History: smoke: 1/PPD, 25 years alcohol: used to drink daily, none now drugs: none - Constitutional Constitutional: Denies chills, Denies fever - EENT Eyes: denies blurred vision, denies pain Ears: bilateral: decreased hearing, deny: tinnitus Ears, nose, mouth and throat: Denies headache, Denies sore throat - Breasts Breasts: bilateral: as per HPI - Cardiovascular Cardiovascular: Reports high blood pressure, Denies chest pain, Denies shortness of breath - Respiratory Comment: smoker - Gastrointestinal Gastrointestinal: Denies abdominal pain, Denies diarrhea, Denies nausea, Denies vomiting - Genitourinary (Female) Genitourinary: Denies dysuria, Denies hematuria - Menstruation Comment: marek-menopausal - Musculoskeletal Comment: back pain Musculoskeletal: Denies myalgias - Integumentary Comment: basal cell cancer on nose - Neurological Neurological: Denies numbness, Denies weakness - Psychiatric Psychiatric: Reports anxiety - Endocrine Endocrine: Denies fatigue, Denies weight change - Hematologic/Lymphatic Comment: motrin as needed for back pain - Allergic/Immunologic Allergic/Immunologic: Reports as per HPI Objective - Vital Signs Vital signs: Vital Signs Temp 98.4 F 06/03/21 12:44 Pulse 99 06/03/21 12:44 Resp 12 06/03/21 12:44 BP 124/61 06/03/21 12:44 Pulse Ox 96 06/03/21 12:44 Intake & Output 06/02/21 06/03/21 06/03/21 18:59 06:59 18:59 Weight 68.039 kg - Constitutional General appearance: Present: cooperative - EENT Eyes: Present: EOMI ENT: Present: hearing grossly normal - Neck Neck: Present: normal ROM - Respiratory Respiratory: bilateral: CTA - Cardiovascular Heart sounds: normal: S1, S2 - Gastrointestinal General gastrointestinal: Present: soft - Integumentary Integumentary: Present: normal turgor - Musculoskeletal Musculoskeletal: Present: gait normal - Psychiatric Psychiatric: Present: A&O x's 3, appropriate affect, intact judgment & insight - Additional findings Additional findings: Breast Exam: BRA: 34C inspection: Weight breast grade 2 ptosis, left breast reconstructed subpectoral implant no evidence of recurrent cancer Palpation: Right breast: Multiple positional exam fibrocystic changes no dominant masses or nodules of concern Right axilla: No adenopathy of concern Left chest wall: No evidence of recurrent cancer Left axilla: No adenopathy of concern Assessment and Plan Assessment: Impression: 1. Patient status post left breast mastectomy sentinel node biopsy for stage I a metaplastic carcinoma, no evidence of recurrent cancer 2. Recent right breast mammogram benign BIRADS 2 3. Patient presently on tamoxifen Plan: 1. Continue tamoxifen/follow with medical oncology Dr. Fry 2. Follow. 6 months 3. Repeat right breast mammogram in 1 year Cc: Dr. Payne
== END ==
LOC: WWCWWP 12:36
PROVIDERS: ATTEND Surgery
DX: Z08 Encounter for follow-up examination after completed treatment for malignant neoplasm (principal); Z90.12 Acquired absence of left breast and nipple; Z85.3 Personal history of malignant neoplasm of breast; I10 Essential (primary) hypertension; F17.210 Nicotine dependence, cigarettes, uncomplicated; Z79.810 Long term (current) use of selective estrogen receptor modulators (SERMs); Z88.2 Allergy status to sulfonamides

== ENCOUNTER → 2021-12-02 | Outpatient (CLI) | payer BC ==
[2021-12-02 11:57] VITALS: BP 119/71; PULSE 77; RESP 18; TEMP 98.1
--- NOTE | 2021-12-02 12:25 | P.PN ---
Subjective Progress Note Date: 12/02/21 Principal diagnosis: stage IA left breast cancer stage IA left breast cancer/ this was metaplastic carcinoma with squamous differentiation Left breast stage IA cancer/status post mastectomy on 9318 Laura is a 53-year-old white female status post ultrasound-guided core biopsy of the left breast which revealed malignant neoplasia with squamous differentiation. Favor metaplastic mammary cancer. She subsequently underwent a left breast mastectomy with subpectoral implant reconstruction on 9318. Pathology revealed multiple intraductal papillomas. Her lymph nodes were negative. She was seen by medical oncology. It was Er+Pr+ and HER-2 negative and she was started on tamoxifen. She has no complaints related to the tamoxifen. She did not have any radiation therapy. She is doing well, reconstruction as per Dr. Latham. She started tamoxifen in June 2019, she is tolerating this however she has had some weight gain. She has yearly pelvic exams through Dr. Payne, Appt July. She has no complaints related to her breast. She has no concerns related to her left chest wall. Her father from COVID August 04, 2020 and she is very sad. Her mother is now living with her. She has had Moderna vaccination in her second shot was November 27, 2020. She had flu like symptoms after the first vaccine. Right breast mammogram on 05-30-21 Benign BIRAD 2 Patient has no complaints related to her right breast or her left chest wall at this time. Note from Dr. Fry 10-24-21 reviewed, continue tamoxifen Family history: 1.grandfather paternal: lung 2. Patient with a history of basal cell carcinoma in her nose Clinical history: Menarche:12 , 1 stillborn, age at first live : 22, breast fed: no menopasue: last period in November BCP: 2 years hormones: none Surgical history: 1. 2. Cervical laser ablation 3. Basal cell carcinoma on her nose 4. left breast mastectomy and reconstruction/SNB Medical History: 1. HTN 2. back pain Social History: smoke: 1/PPD, 25 years alcohol: used to drink daily, none now drugs: none - Constitutional Constitutional: Denies chills, Denies fever - EENT Eyes: denies blurred vision, denies pain Ears: bilateral: decreased hearing, deny: tinnitus Ears, nose, mouth and throat: Denies headache, Denies sore throat - Breasts Breasts: bilateral: as per HPI - Cardiovascular Cardiovascular: Reports high blood pressure, Denies chest pain, Denies shortness of breath - Respiratory Comment: smoker - Gastrointestinal Gastrointestinal: Denies abdominal pain, Denies diarrhea, Denies nausea, Denies vomiting - Genitourinary (Female) Genitourinary: Denies dysuria, Denies hematuria - Menstruation Comment: marek-menopausal - Musculoskeletal Comment: back pain Musculoskeletal: Denies myalgias - Integumentary Comment: basal cell cancer on nose - Neurological Neurological: Denies numbness, Denies weakness - Psychiatric Psychiatric: Reports anxiety - Endocrine Endocrine: Denies fatigue, Denies weight change - Hematologic/Lymphatic Comment: motrin as needed for back pain - Allergic/Immunologic Allergic/Immunologic: Reports as per HPI Objective - Vital Signs Vital signs: Vital Signs Temp 98.1 F 12/02/21 11:54 Pulse 77 12/02/21 11:54 Resp 18 12/02/21 11:54 BP 119/71 12/02/21 11:54 Pulse Ox 98 12/02/21 11:54 Intake & Output 12/01/21 12/02/21 12/02/21 18:59 06:59 18:59 Weight 57.153 kg - Exam BM 23 - Constitutional General appearance: Present: cooperative - EENT Eyes: Present: edentulous ENT: Present: hearing grossly normal - Neck Neck: Present: normal ROM - Respiratory Respiratory: bilateral: CTA - Cardiovascular Rhythm: regular Heart sounds: normal: S1, S2 - Gastrointestinal General gastrointestinal: Present: soft - Integumentary Integumentary: Present: normal turgor - Musculoskeletal Musculoskeletal: Present: gait normal - Psychiatric Psychiatric: Present: A&O x's 3, appropriate affect, intact judgment & insight - Additional findings Additional findings: Breast Exam: BRA: 36C inspection: Post op changes left mastectomy and reconstruction, right breast grade 2 ptosis Palpation: Right breast: Multiple positional exam fibrocystic changes no dominant masses or nodules of concern Right axilla: No adenopathy of concern Left chest wall evidence of recurrent cancer Left axilla: No adenopathy of concern Assessment and Plan Assessment: Impression: Patient status post left breast mastectomy for stage I a left breast metastatic carcinoma with squamous differentiation Patient is presently on tamoxifen she does have some concerns about thinning of her hair Plan: Follow up with medical oncology regarding tamoxifen and possible side effects Repeat right breast mammogram in May 2022 with physician exam at that time CC:
== END ==
LOC: WWCWWP 11:38
PROVIDERS: ATTEND Surgery
DX: C79.81 Secondary malignant neoplasm of breast (principal); Z90.12 Acquired absence of left breast and nipple; Z79.810 Long term (current) use of selective estrogen receptor modulators (SERMs); I10 Essential (primary) hypertension; F17.210 Nicotine dependence, cigarettes, uncomplicated; Z88.2 Allergy status to sulfonamides

== ENCOUNTER → 2023-02-26 | Outpatient (CLI) | payer BC ==
--- NOTE | 2023-02-26 12:36 | XR ---
EXAMINATION TYPE: XR lumbosacral spine min 4V DATE OF EXAM: 02/26/2023 12:28 PM INDICATION: Patient age:Female; 57 years old; Reason for study: [id number] LT SCIATICA; [facility]. COMPARISON: Lumbosacral spine radiograph 12/10/2018 TECHNIQUE: Frontal, lateral , bilateral oblique and coned in L5-S1 lateral views of the spine. FINDINGS: There are 5 lumbar type vertebral bodies identified. No evidence of any acute osseous patho logy. No evidence of loss of vertebral body height is seen. Similar grade 1 anterolisthesis of L4 on L5. Similar levoscoliotic curvature. Multilevel facet arthropathy most pronounced at L4-L5 and L5-S1 . Multilevel mild to moderate degenerative disc disease redemonstrated most pronounced at L4-L5 and L 5-S1 with disc space narrowing and endplate sclerosis. IMPRESSION: 1. No acute process. 2. Similar multilevel degenerative disc disease with grade 1 anterolisthesis of L4 on L5.
== END | disposition home or self-care (01) ==
LOC: RADXRYALE 11:49
PROVIDERS: ATTEND Internal Medicine
DX: M51.36 Other intervertebral disc degeneration, lumbar region (principal); M43.16 Spondylolisthesis, lumbar region; M54.32 Sciatica, left side
CPT/HCPCS: 72110

== ENCOUNTER → 2023-06-12 | Outpatient (CLI) | payer BC ==
--- NOTE | 2023-06-12 15:15 | MR ---
EXAMINATION TYPE: MR lumbar spine wo con DATE OF EXAM: 06/12/2023 1:50 PM CLINICAL INDICATION:Female, 57 years old with history of M54.50 LOW BACK PAIN,, M47.26; PHH, Low back pain COMPARISON: None TECHNIQUE: Multi planar, multi sequence imaging was performed utilizing: T1-weighted, T2-weighted, a nd turbo inversion recovery imaging of the lumbar spine. IV Contrast: cc . (None if empty) FINDINGS: Alignment: The lumbar vertebral bodies have preserved heights with grade 1 anterolisthesis of L4 on L 5. Mild spinal canal and mild neural foraminal stenosis. Pedicles appear intact. Cord: The conus medullaris and the distal spinal cord appear unremarkable with regards to their signa l intensity and morphology. Bones/Discs: Multilevel degeneration changes are seen throughout the spine. There are some reactive b magno edema along the superior endplate of L5. Multilevel osteophyte formation with facet arthropathy i s present. T12-L1: No evidence of significant spinal canal stenosis or neural foraminal stenosis. L1-L2: No evidence of significant spinal canal stenosis or neural foraminal stenosis. L2-L3: No evidence of significant spinal canal stenosis or neural foraminal stenosis. L3-L4: Disc bulge and facet joint arthropathy result in mild spinal canal and mild bilateral neural f oraminal stenosis. L4-L5: Disc uncovering from grade 1 anterolisthesis and facet joint arthropathy with mild spinal daniele l stenosis and mild bilateral neural foraminal stenosis. L5-S1: The disc is rounded posterior morphology without significant spinal canal stenosis. Facet join t arthropathy with mild bilateral neural foraminal stenosis. No significant spinal canal or neural foraminal stenosis in the remainder of the visualized levels. Other findings: Endometrium is within normal limits for thickness. There is few submucosal cystic ch anges. High T2 signal right renal cyst. IMPRESSION: 1. No definitive evidence of disc herniation or significant spinal canal or neural foraminal stenosi s. 2. Mild disc degeneration with associated osteoarthritic changes with Grade 1 anterolisthesis of L4 on L5 mild bony edema of the superior endplate of L5 which is likely reactive. 3. Uterine adenomyosis suggested..
== END | disposition home or self-care (01) ==
LOC: RADMRIMAIN 13:02
PROVIDERS: ATTEND Nurse Practitioner Family
DX: M47.26 Other spondylosis with radiculopathy, lumbar region (principal); M51.16 Intervertebral disc disorders with radiculopathy, lumbar region; M43.16 Spondylolisthesis, lumbar region
CPT/HCPCS: 72148

== ENCOUNTER → 2023-10-22 | Outpatient (CLI) | payer BC ==
--- NOTE | 2023-10-23 22:15 | MM ---
Reason for Exam: Screening (asymptomatic). Last screening mammogram was performed 12 month(s) ago. Patient History: Menarche at age 12. First Full-Term at age 22. Postmenopausal. Patient has history of breast feeding. Other cancer, age 52. Breast cancer, age 53. 05/06/2019, Mastectomy on the Left side. 04/04/2019, Malignant Core Biopsy on the left side. 04/04/2019, Malignant Core Biopsy on the left side. 03/11/2019, High risk Core Biopsy on the left side. 03/11/2019, High risk Core Biopsy on the left side. 2018, Implant on the left side. 2018, Implant on the left side. Prior Study Comparison: 02/06/2019 Bilateral Diagnostic Mammogram, [facility]. 03/11/2019 Left Diagnostic Mammogram, [facility]. 04/04/2019 Left Diagnostic Mammogram, [facility]. 05/28/2020 Right Diagnostic Mammogram, [facility]. 05/30/2021 Right Diagnostic Mammogram, [facility]. 10/19/2022 Right MG 3D diag mammo w/cad RT, [facility]. Tissue Density: Right: The breast tissue is heterogeneously dense. This may lower the sensitivity of mammography. Findings: Analyzed By CAD. There is no suspicious group of microcalcifications or new suspicious mass in either breast. Overall Assessment: Negative, BI-RAD 1 Management: Screening Mammogram of the right breast in 1 year. . Patient should continue monthly self-breast exams. A clinical breast exam by your physician is recommended on an annual basis. This exam should not preclude additional follow-up of suspicious palpable abnormalities. Electronically signed and approved by: Stevo Turner M.D. Radiologist
== END | disposition home or self-care (01) ==
LOC: RADMAMWWP 10:54
PROVIDERS: ATTEND Internal Medicine Hematology & Oncology
DX: Z12.31 Encounter for screening mammogram for malignant neoplasm of breast (principal); Z78.0 Asymptomatic menopausal state
CPT/HCPCS: 77067

== ENCOUNTER → 2023-11-19 | Outpatient (CLI) | payer BC ==
--- NOTE | 2023-11-20 11:43 | CTL ---
EXAMINATION TYPE: CT Low Dose Lung DATE OF EXAM: 11/19/2023 12:54 PM CLINICAL INDICATION:Female, 57 years old with history of Z12.2 SCREENING CHEST CA F17.210 NICOTINE d ependence; smoker , history of tobacco use. COMPARISON: None. TECHNIQUE: Multiple axial non-contrast scans were obtained from approximately the lung apices through the upper abdomen. Coronal and sagittal reformatted images were obtained. Low dose technique was uti lized. CT DLP: 72.4 mGycm, Automated exposure control for dose reduction was used. CT Contrast: Contrast used: None Oral contrast used: None FINDINGS: ======== Lack of intravenous contrast and low dose technique limits the evaluation of the vascular and soft ti ssue structures. LUNGS: No evidence of pulmonary fibrosis. No evidence of focal consolidation, pneumothorax or pleural effusion. Nodules: RUL: None. RML: None. RLL: None. YESICA: None. LLL: None. AIRWAY: Patent and unremarkable. HEART: Size within normal limits. MEDIASTINUM: No gross evidence of adenopathy. VASCULATURE: No aortic aneurysm. MUSCULOSKELETAL: No acute osseous abnormalities SOFT TISSUES/LYMPH NODES: Unremarkable. LOWER NECK: No significant findings. UPPER ABDOMEN: No significant findings. IMPRESSION: 1. No clinically significant pulmonary nodules. CT LUNG RAD AND CT CHEST RECOMMENDATION: Lung-Rad 1 Negative: Continue annual screening with LDCT in 12 months. S Modifier (other clinically significant findings): None Recommend smoking cessation (if current smoker), or continuation of smoking cessation (if prior smoke r). Annual screening for lung cancer with low-dose computed tomography is recommended in adults ages 55 to 77 years who have a 30 pack-year smoking history and currently smoke or have quit within the pa st 15 years. Screening should be discontinued once a person has not smoked for 15 years or develops a health problem that substantially limits life expectancy or the ability or willingness to have curat darrel lung surgery. Lung rads 2021 [email or web address]
== END | disposition home or self-care (01) ==
LOC: RADCTMAIN 12:03
PROVIDERS: ATTEND Internal Medicine Hematology & Oncology
DX: Z12.2 Encounter for screening for malignant neoplasm of respiratory organs (principal); F17.210 Nicotine dependence, cigarettes, uncomplicated
CPT/HCPCS: 71271

== ENCOUNTER → 2024-11-14 | Outpatient (CLI) | payer BC ==
--- NOTE | 2024-11-17 07:10 | MM ---
Reason for Exam: Screening (asymptomatic). Last mammogram was performed 1 year(s) and 1 month(s) ago. Patient History: Menarche at age 12. First Full-Term at age 22. Postmenopausal. Patient has history of breast feeding. Other cancer, age 52. Breast cancer, age 53. 05/06/2019, Mastectomy on the Left side. 04/04/2019, Malignant Core Biopsy on the left side. 04/04/2019, Malignant Core Biopsy on the left side. 03/11/2019, High risk Core Biopsy on the left side. 03/11/2019, High risk Core Biopsy on the left side. 2018, Implant on the left side. 2018, Implant on the left side. Prior Study Comparison: 05/30/2021 Right Diagnostic Mammogram, [facility]. 10/19/2022 Right MG 3D diag mammo w/cad RT, [facility]. 10/22/2023 Right MG 3D scr alan unilateral w/cad., [facility]. Tissue Density: Right: The breasts are heterogeneously dense, which may obscure small masses. Findings: Analyzed By CAD. No suspicious new mass or worrisome cluster of microcalcification in the right breast. There is no suspicious group of microcalcifications or new suspicious mass in either breast. Overall Assessment: Negative, BI-RAD 1 Management: Screening Mammogram of the right breast in 1 year. . Patient should continue monthly self-breast exams. A clinical breast exam by your physician is recommended on an annual basis. This exam should not preclude additional follow-up of suspicious palpable abnormalities. Note on Narcisa scores and lifetime risk: 1. A Narcisa score greater than 3% is considered moderate risk. If this is the case, consider specialist referral to assess eligibility for a risk reducing agent. 2. If overall lifetime risk for the development of breast cancer is 20% or higher, the patient may qualify for future screening with alternating mammogram and breast MRI. [facility], , 11/17/2024 7:07 AM. Electronically signed and approved by: Luigi Ortez M.D.
== END | disposition home or self-care (01) ==
LOC: RADMAMWWP 15:05
PROVIDERS: ATTEND Internal Medicine Hematology & Oncology
DX: Z12.31 Encounter for screening mammogram for malignant neoplasm of breast (principal); R92.331 Mammographic heterogeneous density, right breast; C50.812 Malignant neoplasm of overlapping sites of left female breast; I10 Essential (primary) hypertension; F17.210 Nicotine dependence, cigarettes, uncomplicated; F41.8 Other specified anxiety disorders; Z78.0 Asymptomatic menopausal state; Z85.3 Personal history of malignant neoplasm of breast
CPT/HCPCS: 77067

== ENCOUNTER → 2024-11-18 | Outpatient (CLI) | payer BC ==
--- NOTE | 2024-11-18 13:09 | CTL ---
EXAMINATION TYPE: CT Low Dose Lung DATE OF EXAM: 11/18/2024 12:47 PM COMPARISON: None. CLINICAL INDICATION: Female, 58 years old with history of Z12.2 LUNG CA SCR F17.210 CRRENT SMOKER, cu rrent smoker 1 PPD x38 years, History of tobacco use. TECHNIQUE: Low Dose CT Lung Screening, Low dose computed tomography scan was performed through the est at 1 millimeter thick sections and reconstructed images in the coronal plane at 1 mm thick sectio ns. IV CONTRAST USED: None. SCREENING VISIT: First visit CT DLP: 72.3 mGycm, Automated exposure control for dose reduction was used. CT CTDI: 2.1 mGy FINDINGS: CT DIAGNOSTIC QUALITY: Satisfactory LUNG NODULES: Not presentLeft lung: no nodules identified.Right lung: no nodules identified. LUNGS: COPD: Severity: Mild Fibrosis: Severity:None Lymph nodes: None Other findings: None RIGHT PLEURAL SPACE: Effusion: None Calcification: None Thickening: None Pneumothorax: None LEFT PLEURAL SPACE: Effusion: None Calcification: None Thickening: None Pneumothorax: None HEART: * Size within normal limits. * No significant coronary artery calcifications. OTHER FINDINGS: Upper abdomen: No significant abnormality Bony thorax: Degenerative changes Supraclavicular region: No significant abnormalityOther: No significant abnormalityI IMPRESSION: 1. No clinically significant pulmonary nodules. 2. Mild emphysema. CT LUNG RAD AND CT CHEST RECOMMENDATION: Lung-Rad 1 Negative: Continue annual screening with LDCT in 12 months. S Modifier (other clinically significant findings): [facility], , 11/18/2024 1:06 PM
== END | disposition home or self-care (01) ==
LOC: RADCTMAIN 12:26
PROVIDERS: ATTEND Internal Medicine Hematology & Oncology
DX: Z12.2 Encounter for screening for malignant neoplasm of respiratory organs (principal); F17.210 Nicotine dependence, cigarettes, uncomplicated; J43.9 Emphysema, unspecified
CPT/HCPCS: 71271